=== PATIENT | male | born 1955 | race Caucasian/White ===

== ENCOUNTER → 2016-05-24 | Outpatient (CLI) | payer OTHER ==
[~2016-05-24] MED LIST: ACET-703 PO; AMLO10TA2 PO; BACT800T5 PO; HYDR-3516 PO; HYDR-3533 PO; IBUP800T23 PO; KETO60IN6 IM; MELO7.5T4 PO; METH125I2 IM; MULT1TAB85 PO
[2016-05-24 14:57] LABS: AUTOMATED NEUTROPHIL # 2.8 TH/MM3 (1.8-7.7); BASOPHIL % 0.8 % (0.0-2.0); EOSINOPHIL # 0.1 TH/MM3 (0-0.4); LYMPH % 26.9 % (9.0-44.0); LYMPHOCYTE # 1.4 TH/MM3 (1.0-4.8); MEAN CELL VOLUME 74.3 FL (80.0-100.0); MEAN CORPUSCULAR HEMOGLOBIN 23.8 PG (27.0-34.0); MEAN CORPUSCULAR HGB CONC 32.1 % (32.0-36.0); MONO % 15.3 % (0.0-8.0); PLATELET COUNT 160 TH/MM3 (150-450); RED BLOOD COUNT 4.58 MIL/MM3 (4.50-5.90); RED CELL DISTRIBUTION WIDTH 18.6 % (11.6-17.2); WHITE BLOOD COUNT 5.2 TH/MM3 (4.0-11.0)
[2016-05-24 14:58] LABS: HEMO FLAGS AUTO DIFF
[2016-05-24 15:09] LABS: APTT (PATIENT) 26.5 SEC (24.3-30.1); PROTHROMBIN TIME - PATIENT 11.4 SEC (9.8-11.6)
[2016-05-24 15:20] LABS: BICARBONATE 31.5 MEQ/L (21.0-32.0); POTASSIUM 3.6 MEQ/L (3.5-5.1)
[2016-05-24 15:29] LABS: KERATOCYTES OCC (NORMAL); PLATELET ESTIMATE SMEAR NORMAL (NORMAL); PLATELET MORPHOLOGY NORMAL (NORMAL); SCAN/DIFF AUTO DIFF CONFIRMED
== END ==
LOC: CLAB 14:39
PROVIDERS: ATTEND Family Medicine
DX: D50.9 Iron deficiency anemia, unspecified (principal); M79.89 Other specified soft tissue disorders
CPT/HCPCS: 36415; 80048; 85025; 85610; 85730

== ENCOUNTER → 2016-05-30 | Outpatient (CLI) | payer OTHER ==
[~2016-05-30] MED LIST changes: +GADODIAMIDE PF 287 MG/ML 20 ML VIAL (for RAD MRI) IV ONE
--- NOTE | 2016-05-30 17:07 | RADRPT ---
EXAM DATE/TIME: 05/30/2016 16:49 [facility] COMPARISON: No previous studies available for comparison. INDICATIONS : Screening for MRI. MEDICAL HISTORY : None. SURGICAL HISTORY : None. ENCOUNTER: Initial ACUITY: 1 day PAIN SCORE: 0/10 LOCATION: orbits. FINDINGS: Multiple views of both orbits were performed. There is no evidence of fracture involving the bony st ructures surrounding the orbits. The maxillary sinuses appear to be well aerated. No radiopaque bod ies are seen in the soft tissues. No MRI incompatible foreign body is identified. CONCLUSION: No MRI incompatible foreign body is identified. Juve Hubbard MD on May 30, 2016 at 17:05 Board Certified Radiologist. This report was verified electronically.
--- NOTE | 2016-05-30 22:56 | RADRPT ---
EXAM DATE/TIME: 05/30/2016 17:17 [facility] COMPARISON: CT THORAX W CONTRAST, April 28, 2016, 14:13. INDICATIONS : Neck CA. 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 CONTRAST: 20 cc Omniscan (gadodiamide) IV MEDICAL HISTORY : Hypertension. Renal calculi. SURGICAL HISTORY : Hip fracture. ENCOUNTER: Subsequent ACUITY: > 1 year PAIN SCORE: 4/10 LOCATION: Left side. TECHNIQUE: Multisequence, multiplanar MRI examination was performed. FINDINGS: MRI of the lower neck and upper chest was performed to further evaluate the apparent basal cell carci noma left side of the neck. There is a large soft tissue defect evident at the angle of the neck with abnormal soft tissue with a large ulceration. This is associated with abnormal contrast enhancement. There is adenopathy in the left neck associated with the jugular vein. There is abnormal soft tissue extending towards but not involving the brachial plexus. There is no evidence for perineural spread. This does not involve the lung apex. This does involve the clavicle and is in intimate association with the clavicle. The marrow in the c lavicle appears uninvolved but abnormal soft tissue does extend to the cortex. CONCLUSION: 1. Large soft tissue defect as described above, basal cell carcinoma by history with extension as kenneth cribed above. 2. There is probable pathological adenopathy in the neck. 3. Adenopathy in the neck could be biopsied by ultrasound. Abelino Oviedo MD FACR on May 30, 2016 at 22:45 Board Certified Radiologist. This report was verified electronically.
== END ==
LOC: HRAD 15:55
PROVIDERS: ATTEND Family Medicine
DX: C44.41 Basal cell carcinoma of skin of scalp and neck (principal); M79.89 Other specified soft tissue disorders
CPT/HCPCS: 70543; A9579

== ENCOUNTER → 2016-06-06 | Outpatient (CLI) | payer OTHER ==
[~2016-06-06] MED LIST changes: -GADODIAMIDE PF 287 MG/ML 20 ML VIAL (for RAD MRI) IV ONE
--- NOTE | 2016-06-06 12:07 | RADRPT ---
EXAM DATE/TIME: 06/06/2016 10:02 [facility] COMPARISON: CT THORAX W CONTRAST, April 28, 2016, 14:13. MRI SOFT TISSUE NECK W & W/O CONTRAST, May 30 017, 17:17. INDICATIONS : Left axillary mass. MEDICAL HISTORY : Hypertension. Anemia. Basal cell carcinoma, left neck. SURGICAL HISTORY : Left hip surgery. Kidney stone extraction. Basal cell carcinoma surgery. ENCOUNTER: Initial ACUITY: 1 day PAIN SCORE: 0/10 LOCATION: Left axilla. AREA EVALUATED: Left axilla. FINDINGS: Cordoba scale and Doppler imaging was performed in the left axilla. No mass is visualized. There is no a bnormal fluid collection. 2 lymph nodes are identified. One demonstrates normal morphology and size m easuring 1.2 x 0.5 x 0.8 cm. Another is normal in size but demonstrates a mildly thickened cortex eliana suring 0.8 x 1.1 x 1.2 cm. CONCLUSION: 1. No mass or fluid collection is identified in the left axilla. 2. A total of 2 lymph nodes are identified. None are enlarged by size criteria but one has a mildly t hickened cortex raising suspicion that it may be abnormal. Juve Samaniego MD on June 06, 2016 at 12:03 Board Certified Radiologist. This report was verified electronically.
--- NOTE | 2016-06-06 14:13 | RADRPT ---
EXAM DATE/TIME: 06/06/2016 10:29 [facility] COMPARISON: MRI SOFT TISSUE NECK W & W/O CONTRAST, May 30, 2016, 17:17. INDICATIONS : Left neck mass, abnormal MRI. MEDICAL HISTORY : Anemia. Basal cell carcinoma, left neck. SURGICAL HISTORY : Left hip surgery. Kidney stone extraction. Basal cell carcinoma surgery. ENCOUNTER: Initial ACUITY: 1 day PAIN SCORE: 0/10 LOCATION: Left neck AREA EVALUATED: Left neck mass. FINDINGS: There are multiple hypoechoic areas most likely lymph nodes in the left neck largest proximally measu ring 1.7 and others at or around 8-11 mm in size. These are nonspecific. There is a history of basal cell cancer left side of the neck. Further evaluation with PET CT scan may be worth consideration. CONCLUSION: Multiple hypoechoic areas probable lymph nodes in the left neck majority approximately 1 cm size larg est 1.7 cm in size. History of basal cell cancer left side of the neck and PET CT scan may be warrant beverly Lebron MD on June 06, 2016 at 14:09 Board Certified Radiologist. This report was verified electronically.
== END ==
LOC: HRAD 09:20
PROVIDERS: ATTEND Family Medicine
DX: R22.1 Localized swelling, mass and lump, neck (principal); R22.32 Localized swelling, mass and lump, left upper limb; Z85.828 Personal history of other malignant neoplasm of skin
CPT/HCPCS: 76536; 76999

== ENCOUNTER 2016-07-05 13:12 | Day surgery (SDC) | payer OTHER ==
[~2016-07-05 13:12] MED LIST changes: -BACT800T5 PO; -HYDR-3516 PO; -HYDR-3533 PO; -IBUP800T23 PO; -KETO60IN6 IM; -MELO7.5T4 PO; -METH125I2 IM
[2016-07-05 13:37] VITALS: BP 133/73; PULSE 106; RESP 18; TEMP 98; O2SAT 99
[2016-07-05 14:25] VITALS: BP 144/85; PULSE 101; RESP 18; TEMP 97.6; O2SAT 100
[2016-07-05] MEDS ORDERED: LIDOCAINE HCL 1% PF 30 ML VIAL ONE (14:27)
[2016-07-05] MEDS ORDERED: SODIUM BICARBONATE 8.4% INJ 50 ML ONE (14:27)
[2016-07-05 14:39] VITALS: BP 146/79; PULSE 99; RESP 18; O2SAT 98
--- NOTE | 2016-07-05 15:46 | RADRPT ---
EXAM DATE/TIME: 07/05/2016 13:36 [facility] COMPARISON: No previous studies available for comparison. EXTERNAL COMPARISON: [facility], PET/CT - HEAD & NECK CA, Jun 06 2016. INDICATIONS : Abnormal left axillary lymph node. MEDICAL HISTORY : Anemia. Basal cell carcinoma, left neck. SURGICAL HISTORY : Left hip surgery. Kidney stone extraction. Basal cell carcinoma surgery. ENCOUNTER: Initial ACUITY: 1 day PAIN SCORE: 0/10 LOCATION: Left axilla. ORGAN: Left lymph node axillary SPECIMENS: Two core specimen(s) submitted for pathologic evaluation. DEVICE: 18 gauge Bio Pince needle Post procedure scanning reveals no hematoma or other complication. The possibility does exist that the tissue obtained will be non-diagnostic. If the sample is non-elizabeth gnostic a repeat biopsy or surgical biopsy may need to be performed. TECHNIQUE: 1. Ultrasound guidance for needle biopsy. 2. Needle biopsy. The risks, benefits, and alternatives to ultrasound guided needle biopsy were explained to the patien t in detail including the risk of bleeding and infection. Written and verbal informed consent was ob tained. With the patient on the ultrasound table, images were obtained. Overlying skin was prepped and drape d in the usual sterile fashion and Lidocaine was utilized as a local anesthetic. A needle was advanced into the identified target and the number of specimens as above obtained and meza bmitted for pathologic evaluation. The patient tolerated the procedure well and left the ultrasound suite in stable condition. 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 Abelino Oviedo MD FACR on July 05, 2016 at 15:40 Board Certified Radiologist. This report was verified electronically.
[2016-07-11] MEDS ORDERED: HYDR-3516 PO (11:54)
[2016-07-13] MEDS ORDERED: BACT800T5 PO (15:25)
[2016-07-18] MEDS ORDERED: HYDR-3516 PO (09:35)
[2016-07-18] MEDS ORDERED: METH125I2 IM (09:48)
[2016-07-18] MEDS ORDERED: KETO60IN6 IM (09:48)
[2016-07-18] MEDS ORDERED: AMLO10TA2 PO (09:55)
== END 2016-07-05 14:48 | disposition home or self-care (01) ==
LOC: HRAD 13:12 → HRIP 13:13 → EDSTATUS 13:30 → HRAD 14:48
PROVIDERS: ATTEND Family Medicine
DX: R59.9 Enlarged lymph nodes, unspecified (principal); Z85.828 Personal history of other malignant neoplasm of skin; D64.9 Anemia, unspecified
CPT/HCPCS: 38505; 76942; 88305; 88333; 88341; 88342

== ENCOUNTER → 2016-09-01 | Outpatient (CLI) | payer OTHER ==
[~2016-09-01] MED LIST changes: -ACET-703 PO; +HYDR-3516 PO
--- NOTE | 2016-09-01 16:29 | RADRPT ---
EXAM DATE/TIME: 09/01/2016 00:00 [facility] COMPARISON: No previous studies available for comparison. OUTSIDE STUDY REVIEWED: INDICATIONS : CT guided liver lesion/hepatic dome lesion biopsy CONCLUSION: The small lesion seen in the dome of the liver by MRI is poorly visualized on the noncontrast CT and given its location would be impossible to biopsy percutaneously. This may be accessible for laparoscopic ultrasound-guided wedge resection. Thank you for this consultation. Abelino Oviedo MD FACR on September 01, 2016 at 16:26 Board Certified Radiologist. This report was verified electronically.
== END ==
LOC: HRAD 14:20
PROVIDERS: ATTEND Internal Medicine
DX: C44.91 Basal cell carcinoma of skin, unspecified (principal); K76.9 Liver disease, unspecified
CPT/HCPCS: 76140

== ENCOUNTER 2016-09-04 08:49 | Emergency (ER) | payer OTHER ==
[~2016-09-04] VITALS: Ht 182.9 cm; Wt 102.0 kg
[2016-09-04 08:51] VITALS: BP 132/76; PULSE 99; RESP 16; TEMP 98.2; O2SAT 98
--- NOTE | 2016-09-04 09:29 | PD ---
HPI . Chronic Left hip pain Chief Complaint: Pain: Acute or Chronic Time Seen by Provider: 09:29 Travel History International Travel<30 days: No Contact w/Intl Traveler<30days: No Traveled to known affect area: No History of Present Illness HPI 60-year-old male with multiple BCC and chronic left hip pain status post left subcapital femoral neck fracture back in February 2016 status post open rigid internal fixation here with complaints of chronic left hip pain. Patient tells me that he is here seeking consultation from an orthopedic physician. He was given tramadol by his oncologist, but tells me it is not helping his pain. He is not here seeking pain medications and only wants to be seen by an orthopedist. He recently obtained Medicaid and is not aware of how it works. He used to receive patient assistance and this is a new process to him. He is accompanied by his brother. PFSH Past Medical History Arthritis: No Asthma: No Autoimmune Disease: No Anxiety: No Depression: No Heart Rhythm Problems: No Cancer: Yes (basal cell carcinoma) Cardiovascular Problems: Yes (HBP) High Cholesterol: No Chemotherapy: No Chest Pain: No Congestive Heart Failure: No COPD: No Cerebrovascular Accident: No Diabetes: No Diminished Hearing: No Endocrine: No GERD: No Genitourinary: No Hepatitis: No Hiatal Hernia: No Hypertension: Yes Immune Disorder: No Kidney Stones: Yes Musculoskeletal: No Neurologic: No Psychiatric: No Reproductive: No Respiratory: No Migraines: No Radiation Therapy: No Renal Failure: No Seizures: No Sleep Apnea: No Thyroid Disease: No Ulcer: No Past Surgical History Abdominal Surgery: No AICD: No Arteriovenous Shunt: No Body Medical Devices: 3 SCREWS LEFT HIP Cardiac Surgery: No Ear Surgery: No Endocrine Surgery: No Eye Surgery: No Genitourinary Surgery: Yes (NEPHROSTOMY TUBE KIDNEY STONE LEFT ) Gynecologic Surgery: No Insulin Pump: No Joint Replacement: No Pacemaker: No Thoracic Surgery: No Other Surgery: Yes (LITHOTRIPSY) Social History Alcohol Use: No (QUIT 05/13/10) Tobacco Use: No Substance Use: No Allergies-Medications (Allergen,Severity, Reaction): Coded Allergies: *MDRO Multi-Drug Resistant Organism (Verified Adverse Reaction, Unknown, MRSA, 08/29/16) MRSA (blood & urine) - 06/30/10 Reported Meds & Prescriptions Reported Meds & Active Scripts Active Amlodipine (Amlodipine Besylate) 10 Mg Tab 10 Mg PO DAILY Hydrocodone-Acetaminophen 5-325 mg Tab 1 Tab PO Q6H PRN Reported Multivitamin Men (Multiple Vitamins W/ Minerals) 1 Tab Tab 1 Tab PO DAILY Review of Systems General / Constitutional: No: Fever Eyes: No: Visual changes HENT: No: Headaches Cardiovascular: No: Chest Pain or Discomfort Respiratory: No: Shortness of Breath Gastrointestinal: No: Abdominal Pain Genitourinary: No: Dysuria Musculoskeletal: Positive: Pain (left hip pain), No: Atrophy Skin: No Rash Neurologic: No: Weakness Psychiatric: No: Depression Endocrine: No: Polydipsia Hematologic/Lymphatic: No: Easy Bruising Physical Exam Narrative GENERAL: AAO x 3, no acute distress, Well-nourished, well-developed patient. SKIN: Warm and dry. No visible rashes or bruising. HEAD: Normocephalic and atraumatic. EYES: No scleral icterus. No injection or drainage. ENT: No nasal drainage noted. Mucous membranes pink. Airway patent. NECK: Supple, trachea midline. No JVD. CARDIOVASCULAR: Regular rate and rhythm without murmurs, gallops, or rubs. RESPIRATORY: Breath sounds equal bilaterally. No accessory muscle use. No rhonchi or rales. GASTROINTESTINAL: Abdomen soft, non-tender, nondistended. EXTREMITIES: No cyanosis or edema. left hip: tenderness to palpation laterally, limited ROM, SLR elicits back pain BACK: Nontender without obvious deformity. No CVA tenderness. PSYCH: AAO x 3, normal affect. Data Data Last Documented VS Vital Signs Date Time Temp Pulse Resp B/P Pulse Ox O2 Delivery O2 Flow Rate FiO2 09/04/16 08:51 98.2 99 16 132/76 98 MDM Medical Decision Making Medical Screen Exam Complete: Yes Emergency Medical Condition: Yes Medical Record Reviewed: Yes Differential Diagnosis Acute on chronic hip pain, postoperative pain, less likely recurrent hip fracture Narrative Course 60-year-old male with multiple BCC and chronic left hip pain status post left subcapital femoral neck fracture back in February 2016 status post open rigid internal fixation here with complaints of chronic left hip pain. Patient tells me that he is here seeking consultation from an orthopedic physician. He was given tramadol by his oncologist, but tells me it is not helping his pain. He is not here seeking pain medications and only wants to be seen by an orthopedist. He recently obtained Medicaid and is not aware of how it works. He used to receive patient assistance and this is a new process to him. He is accompanied by his brother. Patient was given information for [facility]. A medical screening exam was performed: At the time of evaluation the presenting medical condition was determined not to be of an emergent nature. The patient was given the option of receiving additional care, but declined. Patient was given options for additional community resources from which to obtain care. The Patient Has Been advised to seek medical attention for their presenting complaint. The patient has been advised to return to the ER at any time if an emergent condition develops. 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 I have already explained that I cannot have orthopedics see him in the ED for a chronic issue that is non-emergent. I had another discussion with patient. He does not want meds. He is requesting I bring Dr. Fitzgerald to see him in the ED. I have explained to him that I cannot do this. He still does not seem to understand. I had another discussion with him and his brother. The brother explained it to him Diagnosis Primary Impression: Chronic left hip pain Referrals: Orthopedist Patient Instructions: General Instructions Additional Instructions: You'll need to establish with a primary care provider. See orthopedics as recommended. Continue your current medications. Med/Other Pt SpecificInfo: No Change to Meds Disposition: 01 DISCHARGE HOME Condition: Stable Winifred Mirza Sep 04, 2016 09:29
== END 2016-09-04 13:43 | disposition home or self-care (01) ==
LOC: NEPK 08:49
DX: M25.552 Pain in left hip (principal); G89.29 Other chronic pain; I10 Essential (primary) hypertension; Z85.828 Personal history of other malignant neoplasm of skin; Z86.79 Personal history of other diseases of the circulatory system; Z87.442 Personal history of urinary calculi
CPT/HCPCS: 99281

== ENCOUNTER 2017-07-03 08:31 | Inpatient (IN) | payer MEDICAID, OTHER ==
[~2017-07-03] VITALS: Ht 182.9 cm; Wt 106.0 kg
[2017-07-03] VITALS (11 sets, daily range): BP systolic 139–199; BP diastolic 80–117; PULSE 96–138; RESP 14–28; TEMP 97.9–98.8; O2SAT 95–100
[~2017-07-03 08:31] MED LIST changes: +DAKI0.12 TOPICAL; +ENOX150I SQ; +OMEG100046 PO; +SULF1TAB23 PO; +TRAM50TA PO; +WARF-22 PO
[2017-07-03] MEDS ORDERED: SODIUM CHLOR 0.9% 1000 ML INJ 1,000 ML IV ONE (09:30)
[2017-07-03 10:08] LABS: AUTOMATED NEUTROPHIL # 13.4 TH/MM3 (1.8-7.7); BASOPHIL % 0.1 % (0.0-2.0); HEMATOCRIT 49.2 % (39.0-51.0); HEMOGLOBIN 16.4 GM/DL (13.0-17.0); LYMPH % 1.7 % (9.0-44.0); LYMPHOCYTE # 0.3 TH/MM3 (1.0-4.8); MEAN CELL VOLUME 87.6 FL (80.0-100.0); MEAN CORPUSCULAR HEMOGLOBIN 29.3 PG (27.0-34.0); MEAN CORPUSCULAR HGB CONC 33.4 % (32.0-36.0); MEAN PLATELET VOLUME 7.7 FL (7.0-11.0); MONO % 12.7 % (0.0-8.0); NEUT % 85.5 % (16.0-70.0); PLATELET COUNT 129 TH/MM3 (150-450); RED BLOOD COUNT 5.61 MIL/MM3 (4.50-5.90); RED CELL DISTRIBUTION WIDTH 15.6 % (11.6-17.2); WHITE BLOOD COUNT 15.7 TH/MM3 (4.0-11.0)
[2017-07-03 10:15] LABS: ALBUMIN 4.6 GM/DL (3.4-5.0); ALT (GPT) 64 U/L (12-78); AST (GOT) 197 U/L (15-37); BICARBONATE 23.2 MEQ/L (21.0-32.0); BLOOD UREA NITROGEN 6 MG/DL (7-18); CALCIUM 9.9 MG/DL (8.5-10.1); CHLORIDE 98 MEQ/L (98-107); CREATININE 2.59 MG/DL (0.60-1.30); GLOMERULAR FILTRATION RATE 25 ML/MIN (>89); GLUCOSE,RANDOM 144 MG/DL (74-106); SODIUM (NA) 146 MEQ/L (136-145)
[2017-07-03 10:17] LABS: ALKALINE PHOSPHATASE 146 U/L (45-117); TOTAL BILIRUBIN ADULT 6.9 MG/DL (0.2-1.0); TOTAL PROTEIN 9.8 GM/DL (6.4-8.2)
--- NOTE | 2017-07-03 10:34 | PD ---
HPI Chief Complaint: GI Complaint Time Seen by Provider: 09:05 Travel History International Travel<30 days: No Contact w/Intl Traveler<30days: No Traveled to known affect area: No History of Present Illness HPI Patient is a 61 year old male who comes in complaining of difficulty swallowing that started yesterday after vomiting. He says that whenever he tries to swallow , he chokes and it comes back up his nose. He denies any pain. He denies sore throat, fevers, congestion. He denies abdominal pain or chest pain. He says he does not feel like anything got stuck in his throat. He says he has never had this before. He says he occasionally has some SOB, but currently is breathing okay. He has not taken anything for his symptoms. Severity is moderate. PFSH Past Medical History Arthritis: No Asthma: No Autoimmune Disease: No Anxiety: No Depression: No Heart Rhythm Problems: No Cancer: Yes (basal cell carcinoma) Cardiovascular Problems: Yes (HBP) High Cholesterol: No Chemotherapy: No Chest Pain: No Congestive Heart Failure: No COPD: No Cerebrovascular Accident: No Diabetes: No Diminished Hearing: No Endocrine: No GERD: No Genitourinary: No Hepatitis: No Hiatal Hernia: No Hypertension: Yes Immune Disorder: No Kidney Stones: Yes Musculoskeletal: No Neurologic: No Psychiatric: No Reproductive: No Respiratory: No Migraines: No Radiation Therapy: No Renal Failure: No Seizures: No Sleep Apnea: No Thyroid Disease: No Ulcer: No Past Surgical History Abdominal Surgery: No AICD: No Arteriovenous Shunt: No Body Medical Devices: 3 SCREWS LEFT HIP Cardiac Surgery: No Ear Surgery: No Endocrine Surgery: No Eye Surgery: No Genitourinary Surgery: Yes (NEPHROSTOMY TUBE KIDNEY STONE LEFT ) Gynecologic Surgery: No Insulin Pump: No Joint Replacement: No Pacemaker: No Thoracic Surgery: No Other Surgery: Yes (LITHOTRIPSY) Social History Alcohol Use: No (QUIT 05/13/10) Tobacco Use: No Substance Use: No Allergies-Medications (Allergen,Severity, Reaction): Coded Allergies: *MDRO Multi-Drug Resistant Organism (Verified Adverse Reaction, Unknown, MRSA, 07/03/17) MRSA (blood & urine) - 06/30/10 Reported Meds & Prescriptions Reported Meds & Active Scripts Active Amlodipine (Amlodipine Besylate) 10 Mg Tab 10 Mg PO DAILY Hydrocodone-Acetaminophen 5-325 mg Tab 1 Tab PO Q6H PRN Reported Warfarin 10 Mg Tab 10 Mg PO DAILY Enoxaparin Inj (Enoxaparin Sodium) 150 Mg/Ml Syr 150 Mg SQ DAILY Tramadol (Tramadol HCl) 50 Mg Tab 50 Mg PO BID PRN Fish Oil 1,000 mg Softgel ([place]-3/Dha/Epa/Fish Oil) 1,000 Mg Capsule 1 Cap PO DAILY Review of Systems Except as stated in HPI: all other systems reviewed are Neg General / Constitutional: No: Fever, Chills HENT: No: Headaches, Lightheadedness, Sore Throat Cardiovascular: No: Chest Pain or Discomfort Gastrointestinal: Positive: Vomiting, No: Abdominal Pain Musculoskeletal: No: Myalgias Skin: No Rash, No Change in Pigmentation Neurologic: No: Weakness Physical Exam Narrative GENERAL: Awake and alert, in no acute distress. SKIN: Focused skin assessment warm/dry. HEAD: Atraumatic. Normocephalic. EYES: Pupils equal and round. No scleral icterus. No injection or drainage. ENT: Mucous membranes pink and moist. No tonsillar swelling. Uvula is midline , is bifurcated, but not enlarged. No tongue swelling. NECK: Trachea midline. No JVD. CARDIOVASCULAR: Regular rate and rhythm. No murmur appreciated. RESPIRATORY: No accessory muscle use. Clear to auscultation. Breath sounds equal bilaterally. No stridor. GASTROINTESTINAL: Abdomen soft, non-tender, nondistended. MUSCULOSKELETAL: No obvious deformities. No clubbing. No cyanosis. No edema. NEUROLOGICAL: Awake and alert. No obvious cranial nerve deficits. Motor grossly within normal limits. Hoarse voice. PSYCHIATRIC: Appropriate mood and affect; insight and judgment normal. Data Data Last Documented VS Vital Signs Date Time Temp Pulse Resp B/P (MAP) Pulse Ox O2 Delivery O2 Flow Rate FiO2 07/03/17 08:32 97.9 138 20 199/98 (131) 98 Room Air Orders Orders Iv Access Insert/Monitor (07/03/17 09:22) Complete Blood Count With Diff (07/03/17 09:22) Comprehensive Metabolic Panel (07/03/17 09:22) Lipase (07/03/17 09:22) Sodium Chlor 0.9% 1000 Ml Inj (Ns 1000 M (07/03/17 09:30) Ct Soft Tiss Neck W/O Iv Cont (07/03/17 ) Ct Thorax/ Chest Wo Iv Contras (07/03/17 ) Dexamethasone Inj (Decadron Inj) (07/03/17 11:30) Pantoprazole Inj (Protonix Inj) (07/03/17 11:30) Labs Laboratory Tests Test 07/03/17 09:40 White Blood Count 15.7 TH/MM3 Red Blood Count 5.61 MIL/MM3 Hemoglobin 16.4 GM/DL Hematocrit 49.2 % Mean Corpuscular Volume 87.6 FL Mean Corpuscular Hemoglobin 29.3 PG Mean Corpuscular Hemoglobin Concent 33.4 % Red Cell Distribution Width 15.6 % Platelet Count 129 TH/MM3 Mean Platelet Volume 7.7 FL Neutrophils (%) (Auto) 85.5 % Lymphocytes (%) (Auto) 1.7 % Monocytes (%) (Auto) 12.7 % Eosinophils (%) (Auto) 0.0 % Basophils (%) (Auto) 0.1 % Neutrophils # (Auto) 13.4 TH/MM3 Lymphocytes # (Auto) 0.3 TH/MM3 Monocytes # (Auto) 2.0 TH/MM3 Eosinophils # (Auto) 0.0 TH/MM3 Basophils # (Auto) 0.0 TH/MM3 CBC Comment DIFF FINAL Differential Comment Blood Urea Nitrogen 6 MG/DL Creatinine 2.59 MG/DL Random Glucose 144 MG/DL Total Protein 9.8 GM/DL Albumin 4.6 GM/DL Calcium Level 9.9 MG/DL Alkaline Phosphatase 146 U/L Aspartate Amino Transf (AST/SGOT) 197 U/L Alanine Aminotransferase (ALT/SGPT) 64 U/L Total Bilirubin 6.9 MG/DL Sodium Level 146 MEQ/L Potassium Level 3.0 MEQ/L Chloride Level 98 MEQ/L Carbon Dioxide Level 23.2 MEQ/L Anion Gap 25 MEQ/L Estimat Glomerular Filtration Rate 25 ML/MIN Lipase 129 U/L MDM Medical Decision Making Medical Screen Exam Complete: Yes Emergency Medical Condition: Yes Medical Record Reviewed: Yes Differential Diagnosis esophageal foreign body vs esophageal tear vs mass vs esophageal ring Narrative Course Patient is a 61-year-old male who comes in complaining of inability to swallow and hoarse voice. Exam shows no evidence of stridor. I have established, labs sent. Labs do show an elevated white blood cell count of 15, creatinine is elevated at 2.59. Previous creatinine was drawn in May 2016 and this was under 1. CT of his neck and chest performed. This shows severe esophagitis as well as swelling of his airway. Patient was given Decadron and Protonix. Last [address] 07/03/17 0000 Signed Impressions: Service Date/Time: Monday, July 03, 2017 10:37 - CONCLUSION: Abnormal significant prevertebral soft tissue thickening measuring up to 2.9 cm, greatest in thickness in the subglottic region, but extending up to the hypopharynx. The soft tissue thickening causes narrowing of the hypopharyngeal airway. The This is a new finding when compared to prior MRI in May 2016. Meir Singh MD Chest CT 07/03/17 Signed Impressions: Service Date/Time: Monday, July 03, 2017 10:37 - CONCLUSION: 1. Concentric thickening of the esophageal wall from superior mediastinum to GE junction suggests esophagitis. 2. No evidence of pneumomediastinum. 3. 5 mm nodular density in the lateral right midlung could represent focal thickening of the pleura or a solitary nodule. Recommend followup CT in 6 months. Meir Singh MD He has not had any symptoms of an infectious process. Concern is for an impending airway issue, so he will be admitted to the ICU for further management. Diagnosis Primary Impression: Esophagitis Additional Impression: Airway compromise Admitting Information Admitting Physician Requests: Admit Eli Lopez MD Jul 03, 2017 10:34
--- NOTE | 2017-07-03 11:11 | RADRPT ---
EXAM DATE/TIME: 07/03/2017 10:37 [facility] COMPARISON: No previous studies available for comparison. INDICATIONS : Difficulty swallowing after vomiting. RADIATION DOSE: 19.95 CTDIvol (mGy) MEDICAL HISTORY : Cardiovascular disease. Hypertension. Carcinoma, basal cell. SURGICAL HISTORY : None. ENCOUNTER: Initial ACUITY: 1 day PAIN SCALE: 6/10 LOCATION: chest TECHNIQUE: Volumetric scanning of the chest was performed. Using automated exposure control and adjustment of t he mA and/or kV according to patient size, radiation dose was kept as low as reasonably achievable to obtain optimal diagnostic quality images. DICOM format image data is available electronically for r eview and comparison. Follow-up recommendations for detected pulmonary nodules are based at a minimum on nodule size and pa tient risk factors according to Fleischner Society Guidelines. FINDINGS: LUNGS: There is no consolidation or pneumothorax. There is a solitary 5 mm nodule adjacent to the lateral m ajor fissure near the periphery, best seen on image #35.. PLEURAE: There is no pleural thickening or pleural effusion. MEDIASTINUM: The heart and great vessels demonstrate no acute abnormality. There is no mediastinal or hilar lymph adenopathy. AXILLAE: Within normal limits. No lymphadenopathy. MUSCULOSKELETAL: Within normal limits for patient age. MISCELLANEOUS: There is an abnormal appearance of the esophagus with concentric wall thickening from the superior me diastinum down to the GE junction. Wall thickness measures up to 13 mm. No mediastinal gas seen. CONCLUSION: 1. Concentric thickening of the esophageal wall from superior mediastinum to GE junction suggests eso phagitis. 2. No evidence of pneumomediastinum. 3. 5 mm nodular density in the lateral right midlung could represent focal thickening of the pleura o r a solitary nodule. Recommend followup CT in 6 months. Meir Singh MD on July 03, 2017 at 10:57 Board Certified Radiologist. This report was verified electronically.
--- NOTE | 2017-07-03 11:18 | RADRPT ---
EXAM DATE/TIME: 07/03/2017 10:37 [facility] COMPARISON: MRI SOFT TISSUE NECK W & W/O CONTRAST, May 30, 2016, 17:17. INDICATIONS : Difficulty swallowing after vomiting. RADIATION DOSE: 15.63 CTDIvol (mGy) MEDICAL HISTORY : Cardiovascular disease. Carcinoma, basal cell. Hypertension. SURGICAL HISTORY : None. ENCOUNTER: Initial ACUITY: 1 day PAIN SCORE: 6/10 LOCATION: neck TECHNIQUE: Volumetric scanning of the neck was performed. Using automated exposure control and adjustment of th e mA and/or kV according to patient size, radiation dose was kept as low as reasonably achievable to obtain optimal diagnostic quality images. DICOM format image data is available electronically for re view and comparison. FINDINGS: Examinations performed without intravenous contrast due to elevated creatinine. There is moderate mu cosal thickening of the left maxillary sinus without air-fluid level. The remainder of the paranasal sinuses are clear. There is significant soft tissue thickening in the prevertebral soft tissues of the infraglottic neck measuring up to 2.9 cm in thickness. This causes extrinsic impression and narrowing of the infraglo ttic airway. There is also thickening extending to the lateral pharyngeal wall bilaterally to the le becky of the base of the epiglottis. Soft tissue thickening is homogeneous we mildly low in attenuatio n on this noncontrast study with mean CT density of 39 Hounsfield units. This soft tissue thickening is a new finding when compared to MRI performed 05/30/16. In the angle of the left neck, there is cutaneous thickening and irregularity, similar in appearance to prior MRI. No evidence of lateral compartment adenopathy. CONCLUSION: Abnormal significant prevertebral soft tissue thickening measuring up to 2.9 cm, greatest in thicknes s in the subglottic region, but extending up to the hypopharynx. The soft tissue thickening causes n arrowing of the hypopharyngeal airway. The This is a new finding when compared to prior MRI in 2016. Meir Singh MD on July 03, 2017 at 11:09 Board Certified Radiologist. This report was verified electronically.
[2017-07-03] MEDS ORDERED: DEXAMETHASONE SOD PHOS 20 MG/5 ML VIAL IV PUSH ONE (11:30)
[2017-07-03] MEDS ORDERED: PANTOPRAZOLE SODIUM 40 MG VIAL IV PUSH ONE (11:30)
[2017-07-03] MEDS ORDERED: RESP: RACEPINEPHRINE 2.25% 0.5 ML NEB NEB ONE (12:45)
[2017-07-03] MEDS ORDERED: RESP: RACEPINEPHRINE 2.25% 0.5 ML NEB NEB PRN (13:45)
[2017-07-03] MEDS ORDERED: BISACODYL 10 MG SUPP RECTAL PRN (13:45)
[2017-07-03] MEDS ORDERED: CHLORHEXIDINE GLUCONATE 2 % 1 PACK (2 CLOTHS) TOP PRN (13:45)
[2017-07-03] MEDS ORDERED: MAGNESIUM HYDROXIDE SUSP 30 ML CUP PO PRN (13:45)
[2017-07-03] MEDS ORDERED: MISCELLANEOUS NURSING INFORMATION XX SCH (13:45)
[2017-07-03] MEDS ORDERED: VANCOMYCIN INJ 1,000 MG in SODIUM CHLOR 0.9% 250 ML INJ 250 ML IV SCH (13:45)
[2017-07-03] MEDS ORDERED: ONDANSETRON HCL 4 MG/2 ML VIAL IV PUSH PRN (13:45)
[2017-07-03] MEDS ORDERED: SENNOSIDES 8.6 MG TAB PO PRN (13:45)
[2017-07-03] MEDS ORDERED: LACTULOSE SYRUP 20 GM/30 ML CUP PO PRN (13:45)
[2017-07-03] MEDS ORDERED: SODIUM CHLORIDE 0.9% FLUSH 10 ML FLUSH IV FLUSH PRN (13:45)
[2017-07-03] MEDS ORDERED: diphenhydrAMINE HCL 50 MG/ML VIAL IM PRN (14:00)
[2017-07-03] MEDS ORDERED: diphenhydrAMINE HCL 50 MG/ML VIAL IM ONE (14:00)
[2017-07-03] MEDS ORDERED: HEPARIN SODIUM - SQ 10,000 UNITS/ML VIAL SQ SCH (14:00)
[2017-07-03] MEDS: FAMOTIDINE 20 MG/2 ML VIAL IV PUSH SCH (14:00)
[2017-07-03] MEDS: SODIUM CHLOR 0.9% 1000 ML INJ 1,000 ML IV SCH (14:00)
[2017-07-03] MEDS: cefTRIAXone INJ 2,000 MG in SODIUM CHLORIDE 0.9% INJ 100 ML IV SCH (14:00)
[2017-07-03] MEDS: METOPROLOL TARTRATE 5 MG/5 ML VIAL IV PUSH PRN ×2 (14:29→15:28)
[2017-07-03] MEDS ORDERED: VANCOMYCIN INJ 1,000 MG in SODIUM CHLOR 0.9% 250 ML INJ 250 ML IV ONE (14:30)
--- NOTE | 2017-07-03 15:36 | PD.CONS ---
cc: Zane Ramos MD HPI Service General Surgery Consult Requested By Dr. Lal Reason for Consult Possible need for surgical airway placement Primary Care Physician Gracy Hidalgo History of Present Illness 61 year old male with a past medical history of basal cell carcinoma, hypertension and kidney stones who presents after suffering from difficulty swallowing after violently vomiting yesterday from an unknown reason. He has never had anything like this happen before. He has not started any new medications recently. He has not eaten anything unusual lately. He has been started on scheduled Decadron and racemic epinephrine. His oxygen saturation is 98% on 6L humidified air. A General Surgery consultation has been requested in case a surgical airway is needed. Review of Systems Constitutional: DENIES: Fatigue, Weight gain, Chills, Change in appetite Endocrine: DENIES: Polydipsia, Polyuria, Polyphagia Eyes: DENIES: Diplopia, Eye inflammation Ears, nose, mouth, throat: DENIES: Hearing loss Respiratory: DENIES: Cough Cardiovascular: COMPLAINS OF: Dyspnea on Exertion, DENIES: Chest pain, Palpitations, Syncope Gastrointestinal: COMPLAINS OF: Nausea, DENIES: Abdominal pain, Vomiting Genitourinary: DENIES: Urinary frequency Musculoskeletal: DENIES: Joint pain Integumentary: DENIES: Abnormal pigmentation Hematologic/lymphatic: DENIES: Bruising Immunologic/allergic: DENIES: Eczema Neurologic: DENIES: Headache Psychiatric: DENIES: Confusion, Mood changes, Depression Past Family Social History Past Medical History Hypertension Basal cell carcinoma Kidney stones DVT in LEFT leg Past Surgical History LEFT hip surgery Lithotripsy Allergies: Coded Allergies: *MDRO Multi-Drug Resistant Organism (Verified Adverse Reaction, Unknown, MRSA, 07/03/17) MRSA (blood & urine) - 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/10 Active Ordered Medications Current Medications Medications (Trade) Dose Ordered Sig/Case Route Start Time Stop Time Status Last Admin Sodium Chloride 1,000 ml @ 84 mls/hr [id number] IV 07/03/17 14:00 07/03/17 14:00 (NS Flush) 2 ml UNSCH PRN IV FLUSH 07/03/17 13:45 (NS Flush) 2 ml BID IV FLUSH 07/03/17 21:00 (Pepcid Inj) 10 mg Q12H IV PUSH 07/03/17 14:00 07/03/17 14:00 (Zofran Inj) 4 mg Q6H PRN IV PUSH 07/03/17 13:45 (Heparin Inj) 5,000 units Q12H SQ 07/03/17 14:00 07/03/17 14:00 Miscellaneous Information 1 [id number] XX 07/03/17 13:45 07/03/17 13:45 (Chlorhexidine 2% Cloth) 3 pack Taper DAILY@04 TOP 07/04/17 04:00 06/30/18 03:59 (Chlorhexidine 2% Cloth) 3 pack UNSCH PRN TOP 07/03/17 13:45 (Adore-Colace) 1 tab BID PO 07/03/17 21:00 (Milk Of Magnesia Liq) 30 ml Q12H PRN PO 07/03/17 13:45 (Senokot) 17.2 mg Q12H PRN PO 07/03/17 13:45 (Dulcolax Supp) 10 mg DAILY PRN RECTAL 07/03/17 13:45 (Lactulose Liq) 30 ml DAILY PRN PO 07/03/17 13:45 (Racepinephrine 2.25% Neb) 0.5 ml Q3HR NEB PRN NEB 07/03/17 13:45 07/03/17 15:08 Ceftriaxone Sodium 2000 mg/ Sodium Chloride 100 ml @ 200 mls/hr Q24H IV 07/03/17 14:00 07/03/17 14:00 (Benadryl Inj) 25 mg Q6H PRN IM 07/03/17 14:00 (Lopressor Inj) 2.5 mg Q6H PRN IV PUSH 07/03/17 14:00 07/03/17 15:28 (Decadron Inj) 6 mg Q6HR IV PUSH 07/03/17 18:00 Family History Non contributory Social History Denies tobacco use Denies ETOH use Denies illicit drug use Lives alone. Physical Exam Vital Signs Vital Signs Date Time Temp Pulse Resp B/P (MAP) Pulse Ox O2 Delivery O2 Flow Rate FiO2 07/03/17 12:50 103 18 170/95 (120) 100 Room Air 07/03/17 08:32 97.9 138 20 199/98 (131) 98 Room Air Physical Exam GENERAL: 61 year old male resting in bed in no acute respiratory distress. SKIN: Warm and dry. HEAD: Atraumatic. Normocephalic. EYES: Pupils equal and round. No scleral icterus. No injection or drainage. ENT: No nasal bleeding or discharge. Mucous membranes pink and moist. NECK: Trachea midline. No incisions visualized on neck. CARDIOVASCULAR: Regular rate and rhythm. RESPIRATORY: No accessory muscle use. Clear to auscultation. Breath sounds equal bilaterally. No evidence of accessory muscle use. GASTROINTESTINAL: Abdomen soft, non-tender, nondistended. MUSCULOSKELETAL: Extremities without clubbing, cyanosis, or edema. No obvious deformities. NEUROLOGICAL: Awake and alert. No obvious cranial nerve deficits. Motor grossly within normal limits. Five out of 5 muscle strength in the arms and legs. Normal speech. PSYCHIATRIC: Appropriate mood and affect; insight and judgment normal. Laboratory Laboratory Tests Test 07/03/17 09:40 White Blood Count 15.7 Red Blood Count 5.61 Hemoglobin 16.4 Hematocrit 49.2 Mean Corpuscular Volume 87.6 Mean Corpuscular Hemoglobin 29.3 Mean Corpuscular Hemoglobin Concent 33.4 Red Cell Distribution Width 15.6 Platelet Count 129 Mean Platelet Volume 7.7 Neutrophils (%) (Auto) 85.5 Lymphocytes (%) (Auto) 1.7 Monocytes (%) (Auto) 12.7 Eosinophils (%) (Auto) 0.0 Basophils (%) (Auto) 0.1 Neutrophils # (Auto) 13.4 Lymphocytes # (Auto) 0.3 Monocytes # (Auto) 2.0 Eosinophils # (Auto) 0.0 Basophils # (Auto) 0.0 CBC Comment DIFF FINAL Differential Comment Blood Urea Nitrogen 6 Creatinine 2.59 Random Glucose 144 Total Protein 9.8 Albumin 4.6 Calcium Level 9.9 Alkaline Phosphatase 146 Aspartate Amino Transf (AST/SGOT) 197 Alanine Aminotransferase (ALT/SGPT) 64 Total Bilirubin 6.9 Sodium Level 146 Potassium Level 3.0 Chloride Level 98 Carbon Dioxide Level 23.2 Anion Gap 25 Estimat Glomerular Filtration Rate 25 Lipase 129 Result Diagram: 07/03/17 0940 07/03/17 0940 Imaging Last [address] 07/03/17 0000 Signed Impressions: Service Date/Time: Monday, July 03, 2017 10:37 - CONCLUSION: Abnormal significant prevertebral soft tissue thickening measuring up to 2.9 cm, greatest in thickness in the subglottic region, but extending up to the hypopharynx. The soft tissue thickening causes narrowing of the hypopharyngeal airway. The This is a new finding when compared to prior MRI in May 2016. Meir Singh MD Chest CT 07/03/17 0000 Signed Impressions: Service Date/Time: Monday, July 03, 2017 10:37 - CONCLUSION: 1. Concentric thickening of the esophageal wall from superior mediastinum to GE junction suggests esophagitis. 2. No evidence of pneumomediastinum. 3. 5 mm nodular density in the lateral right midlung could represent focal thickening of the pleura or a solitary nodule. Recommend followup CT in 6 months. Meir Singh MD Assessment and Plan Assessment and Plan 61 year old male with airway compromise; unknown etiology at this time -Continue scheduled Decadron and racemic epinephrine -NPO -Close monitoring of respiratory status -Continue IVF -Continue antibiotics -STAT PT/INR -Have supplies ready at bedside for tracheostomy tube placement should he need one -Thank you for this consult; We will continue to follow Discussed Condition With Cayla Chaney Dr./Lead Embedded Software Engineer GRACY Jul 03, 2017 15:36
--- NOTE | 2017-07-03 15:53 | HHI.HP ---
HPI Service Critical Care Medicine Primary Care Physician Gracy Hidalgo Admission Diagnosis Impending airway compromise Diagnosis: Travel History International Travel<30 Days: No Contact w/Intl Traveler <30 Da: No Traveled to Known Affected Are: No History of Present Illness HPI This is a 61 year old male , that presented to [facility] ED , complaining of difficulty swallowing that started yesterday after vomiting. He says that whenever he tries to swallow, he chokes and it comes back up his nose. He denies any pain. He denies sore throat, fevers, congestion. The patient was noted to have dysphagia, and hoarseness. The patient's medical history is significant for hypertension the patient has not been compliant with his antihypertensive medication stating he ran out of bed a while ago, 2 weeks, type of medication unknown. Laboratory and imaging studies were performed, CT neck revealed significant narrowing of the infraglottic airway thickening extending from the left lateral pharyngeal wall bilateral to the level of the base of epiglottis. CT chest showed esophagitis emanating from the mediastinum to the GE junction. In the ED the patient received Decadron 10 mg 1 dose, one racemic epi nebulizer treatment. Critical care medicine was consulted. I consulted ENT Dr. Naylor, and discussed case with general surgery Dr. Ramos and Ms. Ang, in the event of possible emergent tracheostomy/or cricothyrotomy. History PFSH Past Medical History Arthritis: No Asthma: No Autoimmune Disease: No Anxiety: No Depression: No Heart Rhythm Problems: No Cancer: Yes (basal cell carcinoma) Cardiovascular Problems: Yes (HBP) High Cholesterol: No Chemotherapy: No Chest Pain: No Congestive Heart Failure: No COPD: No Cerebrovascular Accident: No Diabetes: No Diminished Hearing: No Endocrine: No GERD: No Genitourinary: No Hepatitis: No Hiatal Hernia: No Hypertension: Yes Immune Disorder: No Kidney Stones: Yes Musculoskeletal: No Neurologic: No Psychiatric: No Reproductive: No Respiratory: No Migraines: No Radiation Therapy: No Renal Failure: No Seizures: No Sleep Apnea: No Thyroid Disease: No Ulcer: No Past Surgical History Abdominal Surgery: No AICD: No Arteriovenous Shunt: No Body Medical Devices: 3 SCREWS LEFT HIP Cardiac Surgery: No Ear Surgery: No Endocrine Surgery: No Eye Surgery: No Genitourinary Surgery: Yes (NEPHROSTOMY TUBE KIDNEY STONE LEFT ) Gynecologic Surgery: No Insulin Pump: No Joint Replacement: No Pacemaker: No Thoracic Surgery: No Other Surgery: Yes (LITHOTRIPSY) Social History Alcohol Use: No (QUIT 05/13/10) Tobacco Use: No Substance Use: No Allergies-Medications Allergies-Medications (Allergen,Severity, Reaction): Coded Allergies: *MDRO Multi-Drug Resistant Organism (Verified Adverse Reaction, Unknown, MRSA, 07/03/17) MRSA (blood & urine) - 06/30/10 Reported Meds & Prescriptions Reported Meds & Active Scripts Active Amlodipine (Amlodipine Besylate) 10 Mg Tab 10 Mg PO DAILY Hydrocodone-Acetaminophen 5-325 mg Tab 1 Tab PO Q6H PRN Reported Warfarin 10 Mg Tab 10 Mg PO DAILY Enoxaparin Inj (Enoxaparin Sodium) 150 Mg/Ml Syr 150 Mg SQ DAILY Tramadol (Tramadol HCl) 50 Mg Tab 50 Mg PO BID PRN Fish Oil 1,000 mg Softgel ([place]-3/Dha/Epa/Fish Oil) 1,000 Mg Capsule 1 Cap PO DAILY ROS Review of Systems Except as stated in HPI: all other systems reviewed are Neg General / Constitutional: No: Fever, Chills HENT: No: Headaches, Lightheadedness, Sore Throat Cardiovascular: No: Chest Pain or Discomfort Gastrointestinal: Positive: Vomiting, No: Abdominal Pain Musculoskeletal: No: Myalgias Skin: No Rash, No Change in Pigmentation Neurologic: No: Weakness Physical Exam Vital Signs Vital Signs Date Time Temp Pulse Resp B/P (MAP) Pulse Ox O2 Delivery O2 Flow Rate FiO2 07/03/17 12:50 103 18 170/95 (120) 100 Room Air 07/03/17 08:32 97.9 138 20 199/98 (131) 98 Room Air Physical Exam GENERAL: Well-developed well-nourished male sitting up in bed with dysphagia, complains of an inability to manage secretions. SKIN: Warm and dry. HEAD: Atraumatic. Normocephalic. EYES: Pupils equal and round. No scleral icterus. No injection or drainage. ENT: No nasal bleeding or discharge. Mucous membranes pink and moist. Mallampati grade 3, no visualization of uvula NECK: Trachea midline. No JVD. CARDIOVASCULAR: Normal rate, regular rhythm. RESPIRATORY: No accessory muscle use. Clear to auscultation. Breath sounds equal bilaterally. GASTROINTESTINAL: Abdomen soft, non-tender, acute nondistended. No guarding. SKIN: Erythematous nodules areas on face, scalp, bilateral extremities bandage on left chest noted from previous movable of basal cell carcinoma MUSCULOSKELETAL: Extremities without clubbing, cyanosis, or edema. No obvious deformities. NEUROLOGICAL: Awake and alert. RASS 0. No gross focal/sensory deficits. Follows commands in all 4 extremities. Laboratory Laboratory Tests Test 07/03/17 09:40 White Blood Count 15.7 Red Blood Count 5.61 Hemoglobin 16.4 Hematocrit 49.2 Mean Corpuscular Volume 87.6 Mean Corpuscular Hemoglobin 29.3 Mean Corpuscular Hemoglobin Concent 33.4 Red Cell Distribution Width 15.6 Platelet Count 129 Mean Platelet Volume 7.7 Neutrophils (%) (Auto) 85.5 Lymphocytes (%) (Auto) 1.7 Monocytes (%) (Auto) 12.7 Eosinophils (%) (Auto) 0.0 Basophils (%) (Auto) 0.1 Neutrophils # (Auto) 13.4 Lymphocytes # (Auto) 0.3 Monocytes # (Auto) 2.0 Eosinophils # (Auto) 0.0 Basophils # (Auto) 0.0 CBC Comment DIFF FINAL Differential Comment Blood Urea Nitrogen 6 Creatinine 2.59 Random Glucose 144 Total Protein 9.8 Albumin 4.6 Calcium Level 9.9 Alkaline Phosphatase 146 Aspartate Amino Transf (AST/SGOT) 197 Alanine Aminotransferase (ALT/SGPT) 64 Total Bilirubin 6.9 Sodium Level 146 Potassium Level 3.0 Chloride Level 98 Carbon Dioxide Level 23.2 Anion Gap 25 Estimat Glomerular Filtration Rate 25 Lipase 129 Result Diagram: 07/03/1740 07/03/1740 Imaging Last Impressions Neck CT 07/03/17 0000 Signed Impressions: Service Date/Time: Monday, July 03, 2017 10:37 - CONCLUSION: Abnormal significant prevertebral soft tissue thickening measuring up to 2.9 cm, greatest in thickness in the subglottic region, but extending up to the hypopharynx. The soft tissue thickening causes narrowing of the hypopharyngeal airway. The This is a new finding when compared to prior MRI in May 2016. Meir Singh MD Chest CT 07/03/17 0000 Signed Impressions: Service Date/Time: Monday, July 03, 2017 10:37 - CONCLUSION: 1. Concentric thickening of the esophageal wall from superior mediastinum to GE junction suggests esophagitis. 2. No evidence of pneumomediastinum. 3. 5 mm nodular density in the lateral right midlung could represent focal thickening of the pleura or a solitary nodule. Recommend followup CT in 6 months. Meir Singh MD Septic Shock Reassessment Septic shock perfusion: reassessment completed Caprini VTE Risk Assessment Caprini VTE Risk Assessment: Mod/High Risk (score >= 2) Caprini Risk Assessment Model Point Value = 1 Point Value = 2 Point Value = 3 Point Value = 5 Age 41-60 Minor surgery BMI > 25 kg/m2 Swollen legs Varicose veins or History of unexplained or recurrent spontaneous Oral contraceptives or hormone replacement Sepsis (< 1 month) Serious lung disease, including pneumonia (< 1 month) Abnormal pulmonary function Acute myocardial infarction Congestive heart failure (< 1 month) History of inflammatory bowel disease Medical patient at bed rest Age 61-74 Arthroscopic surgery Major open surgery (> 45 min) Laparoscopic surgery (> 45 min) Malignancy Confined to bed (> 72 hours) Immobilizing plaster cast Central venous access Age >= 75 History of VTE Family history of VTE Factor V Leiden Prothrombin [id number] Lupus anticoagulant Anticardiolipin antibodies Elevated serum homocysteine Heparin-induced thrombocytopenia Other congenital or acquired thrombophilia Stroke (< 1 month) Elective arthroplasty Hip, pelvis, or leg fracture Acute spinal cord injury (< 1 month) Prophylaxis Regimen Total Risk Factor Score Risk Level Prophylaxis Regimen 0-1 Low Early ambulation 2 Moderate Order ONE of the following: *Sequential Compression Device (SCD) *Heparin 5000 units SQ BID 3-4 Higher Order ONE of the following medications: *Heparin 5000 units SQ TID *Enoxaparin/Lovenox 40 mg SQ daily (WT < 150 kg, CrCl > 30 mL/min) *Enoxaparin/Lovenox 30 mg SQ daily (WT < 150 kg, CrCl > 10-29 mL/min) *Enoxaparin/Lovenox 30 mg SQ BID (WT < 150 kg, CrCl > 30 mL/min) AND/OR *Sequential Compression Device (SCD) 5 or more Highest Order ONE of the following medications: *Heparin 5000 units SQ TID (Preferred with Epidurals) *Enoxaparin/Lovenox 40 mg SQ daily (WT < 150 kg, CrCl > 30 mL/min) *Enoxaparin/Lovenox 30 mg SQ daily (WT < 150 kg, CrCl > 10-29 mL/min) *Enoxaparin/Lovenox 30 mg SQ BID (WT < 150 kg, CrCl > 30 mL/min) AND *Sequential Compression Device (SCD) Assessment and Plan Assessment and Plan This is a 61-year-old male that reports having a severe episode of vomiting last evening with resultant respiratory distress and difficulty with management of secretions. The dysphasia and hoarseness after severe retching. CT shows soft tissue edema 2.9 cm in the subglottic region but extending only up to the hypopharynx, as well as esophagitis. Patient is at risk for possible emergent intubation vs. emergent tracheostomy or cricothyrotomy. Admit to ICU. Plan by systems: Neurologic: Monitor neuro status per ICU protocol Avoid sedative type medications Tylenol for temperature greater than 101.0, or pain Respiratory: Acute hypoxemic respiratory insufficiency Airway edema Maintain O2 sat greater than 92% Supply cool aerosolized O2 Racemic epinephrine nebs every 3 hours PRN Initiate antibiotics see below ID section Begin H1-diphenhydramine 30 mg IV 1 dose, then 25 mg every 6 hours Begin H2 blockers- Famotidine every 12 hours Continue Decadron 6mg q 6 hrs ENT consulted- Case d/w Dr. Naylor General surgery consulted- d/w Dr. Ramos 07/03 CT neck-soft tissue thickening narrowing infraglottic airway thickening extending into lateral pharyngeal li bilaterally to the level of the base of the epiglottis 07/03 CT chest-abnormal appearance of esophagitis from with thickness to GE junction 2.9 cm greatest and subglottic region but extending up to hypopharynx. Narrowing of hypopharynx Cardiovascular: HTN Pt previously on Norvasc 10 mg/day but ran out of medication, resume meds Telemetry- sinus tach Renal: Elevated creatinine Gray not required at this time. Place condom catheter Bladder scan if no urine output greater than 6 hours -- Strict I/Os FEN/GI: Normal saline 84cc/hr Maintain NPO status Zofran for nausea Bowel regimen Monitor BMP Heme/ID: Possible anaphylaxis Leukocytosis Vancomycin 1 g x one dose Ceftriaxone 2 g every 24 hours F/U blood culture Obtain Infuenza antigen Endocrine: Close monitoring per ICU protocol -- SSI Prophylaxis: GI Prophylaxis Famotidine twice a day DVT Prophylaxis -- SCDs Subcutaneous heparin BID Lines: Peripheral IVs 2. Central line if indicated Dispo: my billing statement This patient remains critically ill with one or more organ systems which are or may become a threat to life. I have spent in excess of 49 minutes discontinuously in the care and management of this patient. This time is exclusive of procedures, and includes, but is not limited to, evaluation of the patient, review of the medical record, discussions with family, consultants, nursing staff, or respiratory therapy, and documentation in the medical record. Code Status Full Discussed Condition With Cyndy Steward , Ms. Ang , patient and WILDLIFE CONSERVATIONIST at bedside (Ronny) Jeannie Lal MD Jul 03, 2017 15:53
[2017-07-03] MEDS: DEXAMETHASONE SOD PHOS 4 MG/ML VIAL IV PUSH SCH ×2 (17:56→23:38)
[2017-07-03] MEDS ORDERED: DEXAMETHASONE SOD PHOS 4 MG/ML VIAL IV PUSH SCH (18:00)
[2017-07-03 18:10] LABS: INTERNATIONAL NORMALIZED RATIO 1.3 RATIO; PROTHROMBIN TIME - PATIENT 12.9 SEC (9.8-11.6)
[2017-07-03] MEDS: DOCUSATE SODIUM 50 MG/SENNA 8.6 MG TAB PO SCH (20:32)
[2017-07-03] MEDS: SODIUM CHLORIDE 0.9% FLUSH 10 ML FLUSH IV FLUSH SCH (20:32)
[2017-07-04] VITALS (17 sets, daily range): BP systolic 134–159; BP diastolic 77–90; PULSE 81–103; RESP 15–25; TEMP 97.5–99.4; O2SAT 93–98
[2017-07-04] MEDS: SODIUM CHLOR 0.9% 1000 ML INJ 1,000 ML IV SCH (01:21)
[2017-07-04] MEDS: FAMOTIDINE 20 MG/2 ML VIAL IV PUSH SCH ×2 (01:47→14:10)
[2017-07-04] MEDS: CHLORHEXIDINE GLUCONATE 2 % 1 PACK (2 CLOTHS) TOP SCH (04:00)
--- NOTE | 2017-07-04 04:54 | RADRPT ---
EXAM DATE/TIME: 07/04/2017 03:49 [facility] COMPARISON: CHEST SINGLE AP, February 26, 2016, 13:06. INDICATIONS : Short of breath. MEDICAL HISTORY : None. SURGICAL HISTORY : None. ENCOUNTER: Subsequent ACUITY: 3 days PAIN SCORE: 0/10 LOCATION: Bilateral chest FINDINGS: 2 AP portable semierect views of the chest demonstrates the lungs to be symmetrically aerated without evidence of mass, infiltrate or effusion. The cardiomediastinal contours are unremarkable. Osseous structures are intact. CONCLUSION: No acute disease. Tobias Juarez MD on July 04, 2017 at 4:52 Board Certified Radiologist. This report was verified electronically.
[2017-07-04] MEDS: DEXAMETHASONE SOD PHOS 4 MG/ML VIAL IV PUSH SCH ×4 (05:01→23:29)
[2017-07-04 07:29] LABS: AUTOMATED NEUTROPHIL # 9.2 TH/MM3 (1.8-7.7); BASOPHIL % 0.1 % (0.0-2.0); HEMATOCRIT 42.6 % (39.0-51.0); HEMOGLOBIN 14.3 GM/DL (13.0-17.0); LYMPH % 3.7 % (9.0-44.0); LYMPHOCYTE # 0.4 TH/MM3 (1.0-4.8); MEAN CELL VOLUME 88.5 FL (80.0-100.0); MEAN CORPUSCULAR HEMOGLOBIN 29.7 PG (27.0-34.0); MEAN CORPUSCULAR HGB CONC 33.5 % (32.0-36.0); MONOCYTE # 0.5 TH/MM3 (0-0.9); NEUT % 91.2 % (16.0-70.0); PLATELET COUNT 67 TH/MM3 (150-450); RED BLOOD COUNT 4.81 MIL/MM3 (4.50-5.90); RED CELL DISTRIBUTION WIDTH 15.9 % (11.6-17.2); WHITE BLOOD COUNT 10.1 TH/MM3 (4.0-11.0)
[2017-07-04 07:56] LABS: ALBUMIN 3.6 GM/DL (3.4-5.0); ALT (GPT) 38 U/L (12-78); AST (GOT) 88 U/L (15-37); BICARBONATE 30.7 MEQ/L (21.0-32.0); BLOOD UREA NITROGEN 17 MG/DL (7-18); CALCIUM 8.7 MG/DL (8.5-10.1); CHLORIDE 107 MEQ/L (98-107); CREATININE 1.06 MG/DL (0.60-1.30); GLOMERULAR FILTRATION RATE 71 ML/MIN (>89); GLUCOSE,RANDOM 95 MG/DL (74-106); MAGNESIUM 1.3 MG/DL (1.5-2.5); PHOSPHORUS 1.6 MG/DL (2.5-4.9); SODIUM (NA) 150 MEQ/L (136-145)
[2017-07-04 08:02] LABS: ALKALINE PHOSPHATASE 95 U/L (45-117); TOTAL BILIRUBIN ADULT 4.1 MG/DL (0.2-1.0); TOTAL PROTEIN 7.6 GM/DL (6.4-8.2)
--- NOTE | 2017-07-04 08:23 | HHI.CCPN ---
Subjective Remarks/Hospital Course This is a 61 year old male , that presented to [facility] ED , complaining of difficulty swallowing that started yesterday after vomiting. He says that whenever he tries to swallow, he chokes and it comes back up his nose. He denies any pain. He denies sore throat, fevers, congestion. The patient was noted to have dysphagia, and hoarseness. The patient's medical history is significant for hypertension the patient has not been compliant with his antihypertensive medication stating he ran out of bed a while ago, 2 weeks, type of medication unknown. Laboratory and imaging studies were performed, CT neck revealed significant narrowing of the infraglottic airway thickening extending from the left lateral pharyngeal wall bilateral to the level of the base of epiglottis. CT chest showed esophagitis emanating from the mediastinum to the GE junction. In the ED the patient received Decadron 10 mg 1 dose, one racemic epi nebulizer treatment. Critical care medicine was consulted. I consulted ENT Dr. Naylor, and discussed case with general surgery Dr. Ramos and Ms. Ang, in the event of possible emergent tracheostomy/or cricothyrotomy. Subjective: 07/04: The patient remains on aerosolized cool mist with FiO2 at 0.28, O2 saturation, 100%. The patient states he feels better and is able to manage his secretions, effectively. The patient remains NPO, ENT Dr. Naylor tentatively scheduled to perform flex bronchoscopy today. Hoarseness resolved, creatinine much improved with hydration. Patient's antihypertensive med Vasotec, last taken greater than 2 weeks ago, reinitiated today. Objective Vital Signs Date Time Temp Pulse Resp B/P (MAP) Pulse Ox O2 Delivery O2 Flow Rate FiO2 07/04/17 06:00 92 07/04/17 06:00 17 153/87 (109) 96 07/04/17 04:00 98.4 07/03/17 20:00 Aerosol Mask 28 Intake and Output 07/04/17 07/04/17 07/04/17 07:59 15:59 23:59 Intake Total 958 ml Output Total 200 ml Balance 758 ml Result Diagram: 07/04/17 0635 07/04/17 0635 Other Results Microbiology Date/Time Source Procedure Growth Status 07/03/17 16:00 Nasal Washing Influenza Types A,B Antigen (BERNARDO) - Final NEGATIVE FOR FLU A AND B ANTIGEN.... Complete Imaging Last Impressions Neck CT 07/03/17 0000 Signed Impressions: Service Date/Time: Monday, July 03, 2017 10:37 - CONCLUSION: Abnormal significant prevertebral soft tissue thickening measuring up to 2.9 cm, greatest in thickness in the subglottic region, but extending up to the hypopharynx. The soft tissue thickening causes narrowing of the hypopharyngeal airway. The This is a new finding when compared to prior MRI in May 2016. Meir Singh MD Chest CT 07/03/17 0000 Signed Impressions: Service Date/Time: Monday, July 03, 2017 10:37 - CONCLUSION: 1. Concentric thickening of the esophageal wall from superior mediastinum to GE junction suggests esophagitis. 2. No evidence of pneumomediastinum. 3. 5 mm nodular density in the lateral right midlung could represent focal thickening of the pleura or a solitary nodule. Recommend followup CT in 6 months. Meir Singh MD Objective Remarks GENERAL: Well-developed well-nourished male sitting up in bed in no acute distress SKIN: Warm and dry. HEAD: Atraumatic. Normocephalic. EYES: Pupils equal and round. No scleral icterus. No injection or drainage. ENT: No nasal bleeding or discharge. Mucous membranes pink and moist. Mallampati grade 3, no visualization of uvula, aerosolized of FiO2 0.2 a NECK: Trachea midline. No JVD. CARDIOVASCULAR: Normal rate, regular rhythm. RESPIRATORY: No accessory muscle use. Clear to auscultation. Breath sounds equal bilaterally. GASTROINTESTINAL: Abdomen soft, non-tender, acute nondistended. No guarding. SKIN: Erythematous nodules areas on face, scalp, bilateral extremities bandage on left chest noted from previous movable of basal cell carcinoma MUSCULOSKELETAL: Extremities without clubbing, cyanosis, or edema. No obvious deformities. NEUROLOGICAL: Awake and alert. RASS 0. No gross focal/sensory deficits. Follows commands in all 4 extremities. A/P Assessment and Plan This is a 61-year-old male that reports having a severe episode of vomiting last evening with resultant respiratory distress and difficulty with management of secretions. The dysphasia and hoarseness after severe retching. CT shows soft tissue edema 2.9 cm in the subglottic region but extending only up to the hypopharynx, as well as esophagitis. Patient is at risk for possible emergent intubation vs. emergent tracheostomy or cricothyrotomy. Admit to ICU. Plan by systems: Neurologic: Monitor neuro status per ICU protocol Avoid sedative type medications Tylenol for temperature greater than 101.0, or pain Respiratory: Acute hypoxemic respiratory insufficiency Airway edema Maintain O2 sat greater than 92% Continue cool aerosolized O2 at .28 Racemic epinephrine nebs every 3 hours PRN Initiate antibiotics see below ID section Continue H1-diphenhydramine 30 mg IV 1 dose, then 25 mg every 6 hours Continue H2 blockers- Famotidine every 12 hours Continue Decadron 6mg q 6 hrs- recommendations per ENT ENT following- Dr. Naylor, tentative plan for flexible bronchoscopy today General surgery following- d/w Dr. Ramos 07/03 CT neck-soft tissue thickening narrowing infraglottic airway thickening extending into lateral pharyngeal li bilaterally to the level of the base of the epiglottis 07/03 CT chest-abnormal appearance of esophagitis from with thickness to GE junction 2.9 cm greatest and subglottic region but extending up to hypopharynx. Narrowing of hypopharynx Cardiovascular: HTN Pt previously on Norvasc 10 mg/day but ran out of medication 2 weeks ago, resume meds, I do not think ACEI last taken 2 weeks ago is responsible for acute edema Telemetry- SR Continue home med Vasotec 10mg/d Renal: Elevated creatinine- resolved Gray not required at this time. Place condom catheter Bladder scan if no urine output greater than 6 hours, and straight cath if > 200 cc -- Strict I/Os FEN/GI: Change IVF D51/2 NSS 84cc/hr Continue NPO status Initiate electrolyte replacement protocol Zofran for nausea Bowel regimen Monitor BMP Heme/ID: Possible anaphylaxis Leukocytosis Vancomycin 1 g x one dose Continue Ceftriaxone 2 g every 24 hours F/U blood culture- NGTD 07/03 Influenza antigen- negative Patient has history of MRSA in 2010, placed on contact isolation, swab results pending Endocrine: Close monitoring per ICU protocol -- SSI Prophylaxis: GI Prophylaxis Famotidine twice a day DVT Prophylaxis -- SCDs Subcutaneous heparin BID- currently on hold 06/15 possibility of an emergent airway intervention Lines: Peripheral IVs 2. Central line if indicated Dispo: Level 3 Follow up. [facility] Physician Jeannie Osborne MD Jul 04, 2017 08:23
[2017-07-04] MEDS ORDERED: MAGNESIUM SULFATE INJ 4 GM in SODIUM CHLORIDE 0.9% INJ 92 ML IV PRN (08:45)
[2017-07-04] MEDS ORDERED: POTASSIUM CHLORIDE 25 MEQ EFFERVESCENT TAB PO PRN (08:45)
[2017-07-04] MEDS ORDERED: POTASSIUM PHOSPHATE MONOBASIC 500 MG TAB PO PRN (08:45)
[2017-07-04] MEDS ORDERED: POTASSIUM CHLOR 20 MEQ PREMIX 100 ML IV PRN (08:45)
[2017-07-04] MEDS ORDERED: POTASSIUM PHOSPHATE MONOBASIC 500 MG TAB PO/TUBE PRN (08:45)
[2017-07-04] MEDS ORDERED: SODIUM PHOSPHATE INJ 30 MMOL in SODIUM CHLOR 0.9% 250 ML INJ 240 ML IV PRN (08:45)
[2017-07-04] MEDS ORDERED: MAGNESIUM OXIDE 400 MG TAB PO PRN (08:45)
[2017-07-04] MEDS ORDERED: POTASSIUM PHOSPHATE INJ 30 MMOL in SODIUM CHLOR 0.9% 250 ML INJ 250 ML IV PRN (08:45)
[2017-07-04] MEDS ORDERED: POTASSIUM CHLOR 40 MEQ PREMIX 100 ML IV PRN ×2 (08:45)
[2017-07-04] MEDS: DEXT 5%-NACL 0.45% 1000 ML INJ 1,000 ML IV SCH ×2 (09:38→21:11)
[2017-07-04] MEDS: DOCUSATE SODIUM 50 MG/SENNA 8.6 MG TAB PO SCH ×2 (09:39→21:00)
[2017-07-04] MEDS: ENALAPRIL MALEATE 10 MG TAB PO SCH (09:39)
[2017-07-04] MEDS: SODIUM CHLORIDE 0.9% FLUSH 10 ML FLUSH IV FLUSH SCH ×2 (09:39→21:11)
[2017-07-04 09:40] LABS: BANDS 11 % (0-6); CORRECTED NUCLEATED RBC 1 /100 WBC (0-0); LYMPHOCYTES 3 % (9-44); MONOCYTES 3 % (0-8); NEUTROPHIL # MANUAL DIFF 9.5 TH/MM3 (1.8-7.7); NUCLEATED RED BLOOD CELL 1 (0-0); POLYS (SEG NEUTROPHILS) 83 % (16-70)
[2017-07-04] MEDS ORDERED: INFLUENZA VIRUS VACCINE (QUADRIVALENT) 0.5 ML SYR IM ONE (10:00)
[2017-07-04] MEDS: MAGNESIUM SULFATE INJ 2 GM in SODIUM CHLORIDE 0.9% INJ 96 ML IV PRN ×2 (10:16→23:40)
--- NOTE | 2017-07-04 10:24 | PD.CONS ---
History of Present Illness Service ENT Consult Requested By [facility] Reason for Consult Airway obstruction Primary Care Physician Gracy Hidalgo Diagnoses: History of Present Illness 61 year old man presented last night with upper airway and esophageal obstruction. Initially he noted difficulty swallowing and could not get fluid down. He presented to the ED. He did show an elevated WBC and CT confirmed upper esophageal and pharyngeal edema. He was treated with racemic epinephrine, steroids and antibiotics. He has had good improvement overnigth. Hoarseness, airway obstruction and dysphagia are all improved. He was able to take clear liquids. Review of Systems Ears, nose, mouth, throat: COMPLAINS OF: Throat pain, Hoarseness, Odynophagia, DENIES: Vertigo, Nasal discharge, Oral lesions, Ear Pain Respiratory: COMPLAINS OF: Shortness of breath Past Family Social History Allergies: Coded Allergies: *MDRO Multi-Drug Resistant Organism (Verified Adverse Reaction, Unknown, MRSA, 07/03/17) MRSA (blood & urine) - 06/30/10 Physical Exam Vital Signs Vital Signs Date Time Temp Pulse Resp B/P (MAP) Pulse Ox O2 Delivery O2 Flow Rate FiO2 07/04/17 08:57 93 Aerosol Mask 6.00 28 07/04/17 06:00 92 07/04/17 06:00 92 17 153/87 (109) 96 07/04/17 05:00 91 19 149/88 (108) 94 07/04/17 04:00 98.4 90 17 157/89 (111) 95 07/04/17 04:00 90 07/04/17 03:00 93 18 146/83 (104) 94 07/04/17 02:00 88 25 145/82 (103) 94 07/04/17 02:00 88 07/04/17 01:00 91 15 146/82 (103) 96 07/04/17 00:00 92 07/04/17 00:00 98.2 92 16 158/89 (112) 95 07/03/17 23:00 97 14 161/80 (107) 96 07/03/17 22:00 96 07/03/17 22:00 96 21 155/90 (111) 96 07/03/17 21:00 97 21 141/81 (101) 95 07/03/17 20:00 95 Aerosol Mask 28 07/03/17 20:00 96 07/03/17 20:00 98.8 96 15 165/96 (119) 95 07/03/17 19:00 103 22 166/96 (119) 96 07/03/17 18:00 102 24 150/83 (105) 96 07/03/17 18:00 103 07/03/17 17:00 98.4 103 22 152/95 (114) 98 07/03/17 16:00 101 07/03/17 16:00 98.4 101 24 158/91 (113) 96 07/03/17 14:30 102 07/03/17 14:30 98.1 117 28 139/117 (124) 97 07/03/17 12:50 103 18 170/95 (120) 100 Room Air Physical Exam GENERAL: This is a well-nourished, well-developed patient, in no apparent distress. SKIN: No rashes, ecchymoses or lesions. Cool and dry. HEAD: Atraumatic. Normocephalic. No temporal or scalp tenderness. EYES: Pupils equal round and reactive. Extraocular motions intact. No scleral icterus. No injection or drainage. ENT: Nose without bleeding, purulent drainage or septal hematoma. Throat without erythema, tonsillar hypertrophy or exudate. Uvula midline. Airway patent. NECK: Trachea midline. No JVD or lymphadenopathy. Supple, nontender, no meningeal signs. FIBEROPTIC LARYNGOSCOPY: Normal pharynx and hypopharynx. Good vocal cord mobility. No laryngeal edema. NEUROLOGICAL: Awake and alert. Normal speech. Laboratory Laboratory Tests Test 07/03/17 17:37 07/04/17 06:35 07/04/17 09:05 Prothrombin Time 12.9 Prothromb Time International Ratio 1.3 White Blood Count 10.1 Red Blood Count 4.81 Hemoglobin 14.3 Hematocrit 42.6 Mean Corpuscular Volume 88.5 Mean Corpuscular Hemoglobin 29.7 Mean Corpuscular Hemoglobin Concent 33.5 Red Cell Distribution Width 15.9 Platelet Count 67 Mean Platelet Volume 8.0 Neutrophils (%) (Auto) 91.2 Lymphocytes (%) (Auto) 3.7 Monocytes (%) (Auto) 5.0 Eosinophils (%) (Auto) 0.0 Basophils (%) (Auto) 0.1 Neutrophils # (Auto) 9.2 Lymphocytes # (Auto) 0.4 Monocytes # (Auto) 0.5 Eosinophils # (Auto) 0.0 Basophils # (Auto) 0.0 CBC Comment AUTO DIFF Differential Total Cells Counted 100 Neutrophils % (Manual) 83 Band Neutrophils % 11 Lymphocytes % 3 Monocytes % 3 Neutrophils # (Manual) 9.5 Nucleated Red Blood Cells 1 Differential Comment FINAL DIFF MANUAL Platelet Estimate LOW Platelet Morphology Comment NORMAL Blood Urea Nitrogen 17 Creatinine 1.06 Random Glucose 95 Total Protein 7.6 Albumin 3.6 Calcium Level 8.7 Phosphorus Level 1.6 Magnesium Level 1.3 Alkaline Phosphatase 95 Aspartate Amino Transf (AST/SGOT) 88 Alanine Aminotransferase (ALT/SGPT) 38 Total Bilirubin 4.1 Sodium Level 150 Potassium Level 2.9 Chloride Level 107 Carbon Dioxide Level 30.7 Anion Gap 12 Estimat Glomerular Filtration Rate 71 Date/Time Source Procedure Growth Status 07/03/17 17:37 Blood Peripheral Aerobic Blood Culture Pending Received 07/03/17 17:37 Blood Peripheral Anaerobic Blood Culture Pending Received 07/03/17 16:00 Nasal Washing Influenza Types A,B Antigen (BERNARDO) - Final NEGATIVE FOR FLU A AND B ANTIGEN.... Complete Result Diagram: 07/04/17 0635 07/04/[address] reviewed. Assessment and Plan Assessment and Plan 61 year old male, inflammatory upper airway process with elevated WBC. Responding to IV steroids and antibiotics. Would continue IV meds at least until tomorrow. Would advance diet. Consider GI eval if he is not yet able to swallow. Larynx is clear. As he improved should be able to discharge on antibiotics and a short steroid taper. ENT prn. Heladio Naylor MD Jul 04, 2017 10:24
[2017-07-04] MEDS: cefTRIAXone INJ 2,000 MG in SODIUM CHLORIDE 0.9% INJ 100 ML IV SCH (14:11)
--- NOTE | 2017-07-04 15:13 | HHI.PR ---
cc: Zane Ramos MD Subjective Subjective Notes Resting in bed No complaints Breathing comfortable Objective Vitals/I&O Vital Signs Date Time Temp Pulse Resp B/P (MAP) Pulse Ox O2 Delivery O2 Flow Rate FiO2 07/04/17 12:00 93 07/04/17 12:00 97.5 22 135/79 (97) 95 07/04/17 08:57 Aerosol Mask 6.00 28 Labs Laboratory Tests Test 07/03/17 17:37 07/04/17 06:35 07/04/17 09:05 07/04/17 12:24 Prothrombin Time 12.9 Prothromb Time International Ratio 1.3 White Blood Count 10.1 Red Blood Count 4.81 Hemoglobin 14.3 Hematocrit 42.6 Mean Corpuscular Volume 88.5 Mean Corpuscular Hemoglobin 29.7 Mean Corpuscular Hemoglobin Concent 33.5 Red Cell Distribution Width 15.9 Platelet Count 67 Mean Platelet Volume 8.0 Neutrophils (%) (Auto) 91.2 Lymphocytes (%) (Auto) 3.7 Monocytes (%) (Auto) 5.0 Eosinophils (%) (Auto) 0.0 Basophils (%) (Auto) 0.1 Neutrophils # (Auto) 9.2 Lymphocytes # (Auto) 0.4 Monocytes # (Auto) 0.5 Eosinophils # (Auto) 0.0 Basophils # (Auto) 0.0 CBC Comment AUTO DIFF Differential Total Cells Counted 100 Neutrophils % (Manual) 83 Band Neutrophils % 11 Lymphocytes % 3 Monocytes % 3 Neutrophils # (Manual) 9.5 Nucleated Red Blood Cells 1 Differential Comment FINAL DIFF MANUAL Platelet Estimate LOW Platelet Morphology Comment NORMAL Blood Urea Nitrogen 17 Creatinine 1.06 Random Glucose 95 Total Protein 7.6 Albumin 3.6 Calcium Level 8.7 Phosphorus Level 1.6 2.0 Magnesium Level 1.3 Alkaline Phosphatase 95 Aspartate Amino Transf (AST/SGOT) 88 Alanine Aminotransferase (ALT/SGPT) 38 Total Bilirubin 4.1 Sodium Level 150 Potassium Level 2.9 Chloride Level 107 Carbon Dioxide Level 30.7 Anion Gap 12 Estimat Glomerular Filtration Rate 71 Nasal Screen MRSA (PCR) MRSA DETECTED Date/Time Source Procedure Growth Status 07/03/17 17:37 Blood Peripheral Aerobic Blood Culture - Preliminary NO GROWTH IN 1 DAY Resulted 07/03/17 17:37 Blood Peripheral Anaerobic Blood Culture - Preliminary NO GROWTH IN 1 DAY Resulted 07/03/17 16:00 Nasal Washing Influenza Types A,B Antigen (BERNARDO) - Final NEGATIVE FOR FLU A AND B ANTIGEN.... Complete Radiology Last [address] 07/03/17 0000 Signed Impressions: Service Date/Time: Monday, July 03, 2017 10:37 - CONCLUSION: Abnormal significant prevertebral soft tissue thickening measuring up to 2.9 cm, greatest in thickness in the subglottic region, but extending up to the hypopharynx. The soft tissue thickening causes narrowing of the hypopharyngeal airway. The This is a new finding when compared to prior MRI in May 2016. Meir Singh MD Chest CT 07/03/17 0000 Signed Impressions: Service Date/Time: Monday, July 03, 2017 10:37 - CONCLUSION: 1. Concentric thickening of the esophageal wall from superior mediastinum to GE junction suggests esophagitis. 2. No evidence of pneumomediastinum. 3. 5 mm nodular density in the lateral right midlung could represent focal thickening of the pleura or a solitary nodule. Recommend followup CT in 6 months. Meir Singh MD Cardiovascular: Regular Lungs: Clear Abdomen: Non-distended, Non-tender Extremities: No edema A/P Assessment and Plan 61 year old male with airway compromise; unknown etiology at this time -Airway stable -Diet as tolerated -Please call if surgical airway needed -Discussed with Cayla Branch/C[employer] Reporter ILENE Jul 04, 2017 15:12
[2017-07-04 23:12] LABS: MAGNESIUM 1.6 MG/DL (1.5-2.5); PHOSPHORUS 2.6 MG/DL (2.5-4.9)
[2017-07-04] MEDS: POTASSIUM CHLOR 20 MEQ PREMIX 100 ML IV PRN (23:30)
[2017-07-05] VITALS (20 sets, daily range): BP systolic 127–179; BP diastolic 60–101; PULSE 67–116; RESP 21–47; TEMP 98.1–99; O2SAT 88–95
[2017-07-05] MEDS: FAMOTIDINE 20 MG/2 ML VIAL IV PUSH SCH ×2 (01:48→12:23)
[2017-07-05] MEDS: CHLORHEXIDINE GLUCONATE 2 % 1 PACK (2 CLOTHS) TOP SCH (03:43)
[2017-07-05] MEDS: POTASSIUM CHLOR 20 MEQ PREMIX 100 ML IV PRN ×3 (04:35→22:35)
[2017-07-05 04:42] LABS: HEMOGLOBIN 13.9 GM/DL (13.0-17.0); MEAN CELL VOLUME 88.9 FL (80.0-100.0); MEAN CORPUSCULAR HEMOGLOBIN 28.8 PG (27.0-34.0); MEAN CORPUSCULAR HGB CONC 32.4 % (32.0-36.0); MEAN PLATELET VOLUME 8.1 FL (7.0-11.0); PLATELET COUNT 84 TH/MM3 (150-450); RED BLOOD COUNT 4.83 MIL/MM3 (4.50-5.90); RED CELL DISTRIBUTION WIDTH 16.1 % (11.6-17.2); WHITE BLOOD COUNT 13.1 TH/MM3 (4.0-11.0)
[2017-07-05 05:10] LABS: BICARBONATE 31.3 MEQ/L (21.0-32.0); CALCIUM 8.5 MG/DL (8.5-10.1); CREATININE 1.1 MG/DL (0.60-1.30); MAGNESIUM 2.1 MG/DL (1.5-2.5); PHOSPHORUS 3.4 MG/DL (2.5-4.9)
--- NOTE | 2017-07-05 05:58 | RADRPT ---
EXAM DATE/TIME: 07/05/2017 04:25 [facility] COMPARISON: CHEST SINGLE AP, July 04, 2017, 3:49. INDICATIONS : Shortness of breath, possible pulmonary disease. MEDICAL HISTORY : None. SURGICAL HISTORY : None. ENCOUNTER: Subsequent ACUITY: 4 - 6 days PAIN SCORE: 0/10 LOCATION: Bilateral chest FINDINGS: A single view of the chest demonstrates the lungs to be symmetrically aerated without evidence of mas s, infiltrate or effusion. The cardiomediastinal contours are unremarkable. Osseous structures are intact. CONCLUSION: No acute disease. Tobias Juarez MD on July 05, 2017 at 5:57 Board Certified Radiologist. This report was verified electronically.
[2017-07-05] MEDS: DEXAMETHASONE SOD PHOS 4 MG/ML VIAL IV PUSH SCH (06:02)
[2017-07-05] MEDS ORDERED: POTASSIUM CHLORIDE 20 MEQ PWD PACKET PO ONE (08:15)
[2017-07-05] MEDS: SODIUM CHLORIDE 0.9% FLUSH 10 ML FLUSH IV FLUSH SCH ×3 (08:17→21:00)
[2017-07-05] MEDS: DOCUSATE SODIUM 50 MG/SENNA 8.6 MG TAB PO SCH ×3 (08:17→21:00)
[2017-07-05] MEDS: ENALAPRIL MALEATE 10 MG TAB PO SCH (08:17)
[2017-07-05] MEDS: DEXT 5%-NACL 0.45% 1000 ML INJ 1,000 ML IV SCH (08:18)
[2017-07-05] MEDS ORDERED: LORazepam 2 MG/ML VIAL IV PUSH ONE (10:45)
[2017-07-05] MEDS ORDERED: LORazepam 2 MG TAB PO PRN (11:30)
[2017-07-05] MEDS ORDERED: LORazepam 1 MG TAB PO PRN (11:30)
[2017-07-05] MEDS ORDERED: SODIUM CHLORIDE 0.9% FLUSH 10 ML FLUSH IV FLUSH PRN (11:30)
[2017-07-05] MEDS ORDERED: LORazepam 2 MG/ML VIAL IM ONE (11:30)
[2017-07-05] MEDS ORDERED: HALOPERIDOL LACTATE 5 MG/ML AMP IM ONE (11:30)
[2017-07-05] MEDS ORDERED: LORazepam 2 MG/ML VIAL IV PUSH PRN ×3 (11:30)
[2017-07-05] MEDS ORDERED: FLUMAZENIL 0.5 MG/5 ML VIAL IV PUSH PRN (11:30)
[2017-07-05] MEDS: LORazepam 2 MG/ML VIAL IV PUSH PRN ×3 (12:23→16:47)
[2017-07-05] MEDS: cefTRIAXone INJ 2,000 MG in SODIUM CHLORIDE 0.9% INJ 100 ML IV SCH (12:25)
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
[2017-07-05] MEDS: METOPROLOL TARTRATE 5 MG/5 ML VIAL IV PUSH PRN (18:31)
[2017-07-05] MEDS: HALOPERIDOL LACTATE 5 MG/ML AMP IM PRN (22:35)
[2017-07-06] VITALS (21 sets, daily range): BP systolic 119–199; BP diastolic 65–108; PULSE 60–101; RESP 13–31; TEMP 97–98.6; O2SAT 95–99
[2017-07-06] MEDS: METOPROLOL TARTRATE 5 MG/5 ML VIAL IV PUSH PRN (01:08)
[2017-07-06] MEDS: FAMOTIDINE 20 MG/2 ML VIAL IV PUSH SCH ×2 (02:38→14:32)
[2017-07-06] MEDS: CHLORHEXIDINE GLUCONATE 2 % 1 PACK (2 CLOTHS) TOP SCH (04:00)
[2017-07-06] MEDS: HALOPERIDOL LACTATE 5 MG/ML AMP IM PRN (04:37)
[2017-07-06 07:29] LABS: ALBUMIN 3.4 GM/DL (3.4-5.0); AST (GOT) 67 U/L (15-37); BICARBONATE 32.8 MEQ/L (21.0-32.0); BLOOD UREA NITROGEN 11 MG/DL (7-18); CALCIUM 8.7 MG/DL (8.5-10.1); CHLORIDE 103 MEQ/L (98-107); CREATININE 0.76 MG/DL (0.60-1.30); GLOMERULAR FILTRATION RATE 105 ML/MIN (>89); GLUCOSE,RANDOM 97 MG/DL (74-106); SODIUM (NA) 143 MEQ/L (136-145)
[2017-07-06 07:31] LABS: AUTOMATED NEUTROPHIL # 4.9 TH/MM3 (1.8-7.7); BASOPHIL % 0.1 % (0.0-2.0); HEMATOCRIT 41.8 % (39.0-51.0); HEMOGLOBIN 13.6 GM/DL (13.0-17.0); LYMPHOCYTE # 0.6 TH/MM3 (1.0-4.8); MEAN CELL VOLUME 88.7 FL (80.0-100.0); MEAN CORPUSCULAR HEMOGLOBIN 28.9 PG (27.0-34.0); MEAN CORPUSCULAR HGB CONC 32.6 % (32.0-36.0); MEAN PLATELET VOLUME 8.6 FL (7.0-11.0); MONO % 8.8 % (0.0-8.0); MONOCYTE # 0.5 TH/MM3 (0-0.9); NEUT % 81.1 % (16.0-70.0); PLATELET COUNT 71 TH/MM3 (150-450); RED BLOOD COUNT 4.71 MIL/MM3 (4.50-5.90); RED CELL DISTRIBUTION WIDTH 15.5 % (11.6-17.2); WHITE BLOOD COUNT 6.1 TH/MM3 (4.0-11.0)
[2017-07-06 07:37] LABS: ALKALINE PHOSPHATASE 78 U/L (45-117); ALT (GPT) 35 U/L (12-78); TOTAL BILIRUBIN ADULT 1.7 MG/DL (0.2-1.0); TOTAL PROTEIN 7.3 GM/DL (6.4-8.2)
[2017-07-06] MEDS: DEXT 5%-NACL 0.45% 1000 ML INJ 1,000 ML IV SCH (07:55)
[2017-07-06] MEDS: DOCUSATE SODIUM 50 MG/SENNA 8.6 MG TAB PO SCH ×2 (09:01→20:22)
[2017-07-06] MEDS: ENALAPRIL MALEATE 10 MG TAB PO SCH (09:01)
[2017-07-06] MEDS: SODIUM CHLORIDE 0.9% FLUSH 10 ML FLUSH IV FLUSH SCH ×4 (09:01→20:22)
[2017-07-06] MEDS: POTASSIUM CHLOR 20 MEQ PREMIX 100 ML IV SCH ×2 (09:45→12:35)
[2017-07-06] MEDS ORDERED: ENALAPRILAT 1.25 MG/ML VIAL IV PUSH PRN (10:00)
--- NOTE | 2017-07-06 11:44 | PD.PSY.CON ---
Provisional Diagnosis Admission Date Jul 03, 2017 at 12:44 [place] I. Alcohol use disorder, delirium due to alcohol withdrawal [place] II. Deferred [place] III. 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 He says that whenever he tries to swallow, he chokes and it comes back up his nose. The patient was noted to have dysphagia, and hoarseness. The patient's medical history is significant for hypertension the patient has not been compliant with his antihypertensive medication stating he ran out of bed a while ago, 2 weeks, type of medication unknown. Laboratory and imaging studies were performed, CT neck revealed significant narrowing of the infraglottic airway thickening extending from the left lateral pharyngeal wall bilateral to the level of the base of epiglottis. CT chest showed esophagitis emanating from the mediastinum to the GE junction. In the ED the patient received Decadron 10 mg 1 dose, one racemic epi nebulizer treatment. Patient was consulted to psychiatry due to new onset of agitation, psychosis. As per nurse in charge, the patient last night was very aggressive, he barricaded himself in the bathroom, he was very disorganized, needed ETO's, Haldol 5 mg and Ativan 2 mg IV in order to calm him down. Today on psychiatric evaluation, the patient is found sleeping, but easily arousable. The patient once awake, at the beginning of the be confused, but with redirection the patient became more aware and engageable in a conversation. He reports feeling much better today, he was restrained in 4 points, but I was able to loose on of his hands and he was quite. The patient is now fully oriented 3, he reports being in a good mood, denies depressive symptoms, denies anxiety, denies suicidal and homicidal ideation, he denies visual and auditory hallucinations. No agitation, no aggressive behavior present, the patient is logical, coherent and relevant. He reports drinking alcohol 3-4 times per week, usually 8-10 beers, reports previous withdrawal symptoms. At this time the patient doesn't present tremors, no sweating, he does have some autonomic instability. Review of Systems Constitutional: DENIES: Diaphoretic episodes, Fatigue, Fever, Weight gain, Weight loss, Chills, Dizziness, Change in appetite, Night Sweats Endocrine: DENIES: Heat/cold intolerance, Polydipsia, Polyuria, Polyphagia Eyes: DENIES: Blurred vision, Diplopia, Eye inflammation, Eye pain, Vision loss , Photosensitivity, Double Vision Ears, nose, mouth, throat: DENIES: Tinnitus, Hearing loss, Vertigo, Nasal discharge, Oral lesions, Throat pain, Hoarseness, Ear Pain, Running Nose, Epistaxis, Sinus Pain, Toothache, Odynophagia Respiratory: DENIES: Apneas, Cough, Snoring, Wheezing, Hemoptysis, Sputum production, Shortness of breath Cardiovascular: DENIES: Chest pain, Palpitations, Syncope, Dyspnea on Exertion , PND, Lower Extremity Edema, Orthopnea, Claudication Gastrointestinal: DENIES: Abdominal pain, Black stools, Bloody stools, Constipation, Diarrhea, Nausea, Vomiting, Difficulty Swallowing, Anorexia Genitourinary: DENIES: Sexual dysfunction, Urinary frequency, Urinary incontinence, Urgency, Hematuria, Dysuria, Nocturia, Penile Discharge, Testicular Pain, Testicular Swelling Musculoskeletal: DENIES: Joint pain, Muscle aches, Stiffness, Joint Swelling, Back pain, Neck pain Integumentary: DENIES: Abnormal pigmentation, Nail changes, Pruritus, Rash Hematologic/lymphatic: DENIES: Bruising, Lymphadenopathy Immunologic/allergic: DENIES: Eczema, Urticaria Neurologic: DENIES: Abnormal gait, Headache, Localized weakness, Paresthesias, Seizures, Speech Problems, Tremor, Poor Balance Psychiatric: DENIES: Anxiety, Confusion, Mood changes, Depression, Hallucinations, Agitation, Suicidal Ideation, Homicidal Ideation, Delusions Past Family Social History Coded Allergies: *MDRO Multi-Drug Resistant Organism (Verified Adverse Reaction, Unknown, MRSA, 07/03/17) MRSA (blood & urine) - 06/30/10 Active Scripts Amlodipine (Amlodipine) 10 Mg Tab, 10 MG PO DAILY for Blood Pressure Management , #90 TAB 1 Refill Prov:Kristin Donahue MD 07/18/16 Reported Medications Boaz-3/Dha/Epa/Fish Oil (Fish Oil 1,000 mg Softgel) 1,000 Mg Capsule, 1 CAP PO DAILY 12/20/16 Discontinued Reported Medications Warfarin (Warfarin) 10 Mg Tab, 10 MG PO DAILY for Blood Clot Prevention, #30 TAB 0 Refills 12/20/16 Enoxaparin Inj (Enoxaparin Inj) 150 Mg/Ml Syr, 150 MG SQ DAILY for Blood Clot Prevention, SYRINGE 0 Refills 12/20/16 Tramadol (Tramadol) 50 Mg Tab, 50 MG PO BID Y for PAIN, TAB 0 Refills 12/20/16 Discontinued Scripts Sulfamethoxazole-Trimethoprim (Sulfamethoxazole-Trimethoprim) 800-160 Mg Tab, 1 TAB PO BID for Infection, #20 TAB 0 Refills Prov:Kristin Donahue MD 12/22/16 Sodium Hypochlorite Topical (Dakins Solution Quarter Strength Topical) 0.125% Soln, 473 ML TOPICAL DAILY for Infection, #2 ML 6 Refills Prov:Kristin Donahue MD 12/20/16 Hydrocodone-Acetaminophen (Hydrocodone-Acetaminophen) 5-325 mg Tab, 1 TAB PO Q6H Y for PAIN, #120 TAB 0 Refills Prov:Kristin Donahue MD 07/18/16 Current Medications Medications (Trade) Dose Ordered Sig/Case Route Start Time Stop Time Status Last Admin (NS Flush) 2 ml UNSCH PRN IV FLUSH 07/03/17 13:45 (NS Flush) 2 ml BID IV FLUSH 07/03/17 21:00 07/06/17 09:01 (Pepcid Inj) 10 mg Q12H IV PUSH 07/03/17 14:00 07/06/17 02:38 (Zofran Inj) 4 mg Q6H PRN IV PUSH 07/03/17 13:45 (Heparin Inj) 5,000 units Q12H SQ 07/03/17 14:00 Future Hold 07/03/17 14:00 Miscellaneous Information 1 [id number] XX 07/03/17 13:45 07/03/17 13:45 (Chlorhexidine 2% Cloth) 3 pack Taper DAILY@04 TOP 07/04/17 04:00 06/30/18 03:59 07/05/17 03:43 (Chlorhexidine 2% Cloth) 3 pack UNSCH PRN TOP 07/03/17 13:45 (Adore-Colace) 1 tab BID PO 07/03/17 21:00 07/06/17 09:01 (Milk Of Magnesia Liq) 30 ml Q12H PRN PO 07/03/17 13:45 (Senokot) 17.2 mg Q12H PRN PO 07/03/17 13:45 (Dulcolax Supp) 10 mg DAILY PRN RECTAL 07/03/17 13:45 (Lactulose Liq) 30 ml DAILY PRN PO 07/03/17 13:45 (Racepinephrine 2.25% Neb) 0.5 ml Q3HR NEB PRN NEB 07/03/17 13:45 07/03/17 15:08 Ceftriaxone Sodium 2000 mg/ Sodium Chloride 100 ml @ 200 mls/hr Q24H IV 07/03/17 14:00 07/05/17 12:25 (Benadryl Inj) 25 mg Q6H PRN IM 07/03/17 14:00 (Lopressor Inj) 2.5 mg Q6H PRN IV PUSH 07/03/17 14:00 07/06/17 01:08 (Vasotec) 10 mg DAILY PO 07/04/17 09:00 07/06/17 09:01 Dextrose/Sodium Chloride 1,000 ml @ 84 mls/hr [id number] IV 07/04/17 08:15 07/06/17 07:55 Potassium Chloride 100 ml @ 50 mls/hr Q2H PRN IV 07/04/17 08:45 Potassium Chloride 100 ml @ 50 mls/hr Q2H PRN IV 07/04/17 08:45 07/05/17 22:35 (K-Lyte Cl Eff) 50 meq UNSCH PRN PO 07/04/17 08:45 Potassium Chloride 100 ml @ 25 mls/hr UNSCH PRN IV 07/04/17 08:45 Potassium Chloride 100 ml @ 50 mls/hr Q2H PRN IV 07/04/17 08:45 Magnesium Sulfate 4 gm/Sodium Chloride 100 ml @ 50 mls/hr UNSCH PRN IV 07/04/17 08:45 (Mag-Ox) 800 mg UNSCH PRN PO 07/04/17 08:45 Magnesium Sulfate 2 gm/Sodium Chloride 100 ml @ 50 mls/hr UNSCH PRN IV 07/04/17 08:45 07/04/17 23:40 (K-Phos) 2,000 mg Q4H PRN PO 07/04/17 08:45 Sodium Phosphate 30 mmol/Sodium Chloride 250 ml @ 42 mls/hr UNSCH PRN IV 07/04/17 08:45 (K-Phos) 2,000 mg UNSCH PRN PO/TUBE 07/04/17 08:45 Potassium Phosphate 30 mmol/ Sodium Chloride 260 ml @ 42 mls/hr UNSCH PRN IV 07/04/17 08:45 07/04/17 09:51 (NS Flush) 2 ml UNSCH PRN IV FLUSH 07/05/17 11:30 (NS Flush) 2 ml BID IV FLUSH 07/05/17 21:00 07/06/17 09:01 (Romazicon Inj) 0.2 mg Q1M PRN IV PUSH 07/05/17 11:30 (Ativan) 1 mg Q4H PRN PO 07/05/17 11:30 (Ativan Inj) 1 mg Q4H PRN IV PUSH 07/05/17 11:30 (Ativan) 2 mg Q2H PRN PO 07/05/17 11:30 (Ativan Inj) 2 mg Q2H PRN IV PUSH 07/05/17 11:30 07/05/17 16:47 (Ativan Inj) 2 mg Q1H PRN IV PUSH 07/05/17 11:30 (Ativan Inj) 2 mg Q15M PRN IV PUSH 07/05/17 11:30 07/06/17 02:31 (Haldol Inj) 2 mg Q15M PRN IM 07/05/17 20:00 07/06/17 04:37 (Vasotec Inj) 1.25 mg Q6H PRN IV PUSH 07/06/17 10:00 Potassium Chloride 100 ml @ 50 mls/hr Q2H IV 07/06/17 10:00 07/06/17 13:59 07/06/17 09:45 Family Psych History The patient has a brother with bipolar disorder Social History Patient was born in [facility], he lives in [place], his single, has 2 kids, 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 2) Verbal communication Physical Exam Vital Signs Vital Signs Date Time Temp Pulse Resp B/P (MAP) Pulse Ox O2 Delivery O2 Flow Rate FiO2 07/06/17 08:46 98 Nasal Cannula 4.00 07/06/17 07:00 28 07/06/17 06:00 77 07/06/17 04:00 98.6 19 199/88 (125) I/O 07/06/17 07/06/17 07/07/17 08:00 16:00 00:00 Intake Total 200 ml 1537 ml Output Total 1001 ml Balance -801 ml 1537 ml Lab Results Test 07/06/17 06:25 White Blood Count 6.1 TH/MM3 Red Blood Count 4.71 MIL/MM3 Hemoglobin 13.6 GM/DL Hematocrit 41.8 % Mean Corpuscular Volume 88.7 FL Mean Corpuscular Hemoglobin 28.9 PG Mean Corpuscular Hemoglobin Concent 32.6 % Red Cell Distribution Width 15.5 % Platelet Count 71 TH/MM3 Mean Platelet Volume 8.6 FL Neutrophils (%) (Auto) 81.1 % Lymphocytes (%) (Auto) 10.0 % Monocytes (%) (Auto) 8.8 % Eosinophils (%) (Auto) 0.0 % Basophils (%) (Auto) 0.1 % Neutrophils # (Auto) 4.9 TH/MM3 Lymphocytes # (Auto) 0.6 TH/MM3 Monocytes # (Auto) 0.5 TH/MM3 Eosinophils # (Auto) 0.0 TH/MM3 Basophils # (Auto) 0.0 TH/MM3 CBC Comment AUTO DIFF Differential Comment AUTO DIFF CONFIRMED Platelet Estimate LOW Platelet Morphology Comment NORMAL Blood Urea Nitrogen 11 MG/DL Creatinine 0.76 MG/DL Random Glucose 97 MG/DL Total Protein 7.3 GM/DL Albumin 3.4 GM/DL Calcium Level 8.7 MG/DL Alkaline Phosphatase 78 U/L Aspartate Amino Transf (AST/SGOT) 67 U/L Alanine Aminotransferase (ALT/SGPT) 35 U/L Total Bilirubin 1.7 MG/DL Sodium Level 143 MEQ/L Potassium Level 3.0 MEQ/L Chloride Level 103 MEQ/L Carbon Dioxide Level 32.8 MEQ/L Anion Gap 7 MEQ/L Estimat Glomerular Filtration Rate 105 ML/MIN Date/Time Source Procedure Growth Status 07/03/17 17:37 Blood Peripheral Aerobic Blood Culture - Preliminary NO GROWTH IN 3 DAYS Resulted 07/03/17 17:37 Blood Peripheral Anaerobic Blood Culture - Preliminary NO GROWTH IN 3 DAYS Resulted 07/03/17 16:00 Nasal Washing Influenza Types A,B Antigen (BERNARDO) - Final NEGATIVE FOR FLU A AND B ANTIGEN.... Complete Mental Status Examination Appearance: Appropriate Consciousness: Alert Orientation: x4 Motor Activity: Normal gait Speech: Unremarkable Language: Adequate Fund of Knowledge: Adequate Attention and Concentration: Adequate Memory: Unremarkable Mood: Appropriate Affect: Appropriate Thought Process & Associations: Intact Thought Content: Appropriate Hallucination Type: None Delusion Type: None Suicidal Ideation: No Suicidal Plan: No Suicidal Intention: No Homicidal Ideation: No Homicidal Plan: No Homicidal Intention: No Insight: Adequate Judgment: Adequate Assessment & Plan Problem List: (1) Delirium due to another medical condition ICD Codes: F05 - Delirium due to known physiological condition (2) Alcohol withdrawal delirium, acute, hyperactive ICD Codes: F10.231 - Alcohol dependence with withdrawal delirium Assessment & Plan: On psychiatric evaluation today the patient is found restrained in 4 points, he is is sleeping, but arousable. The patient has reportedly been very aggressive, agitated, disorganized and he needed Haldol 5 mg IM and Ativan 2 mg IM in order to calm him down. At the moment of my evaluation the patient is actually calm, cooperative, he is engageable in a conversation, logical, coherent and relevant, oriented 3, doesn't present any agitation or aggression. The patient does not have any previous psychiatric history. He doesn't have any history of suicidal attempts or aggressive behavior. He does report taking alcohol 3-4 times per day, 8-10 beers per day, having history of withdrawal in the past. Recent reported aggressive behavior and agitation seems to be the result of alcohol withdrawal. Continue CIWA protocol. Even though the patient is now calm and cooperative, he is in a high risk to become psychotic again. In case of behavioral dysregulation and agitation, Haldol 5 mg IM stat can be order. If QTc interval is major than 460 avoid psychotropics. Psychoeducation and motivation provided. He does not meet criteria for involuntary psychiatric admission at this moment. Assessment & Plan Estimated LOS: Marc Campoverde MD Jul 06, 2017 11:44
--- NOTE | 2017-07-06 12:08 | HHI.PR ---
Subjective Remarks Patient has improved with treatment which include cessation of steroids and start of CIWA protocol. Patient is more pleasant today and not exhibiting violence. No psychosis. Restraints have been removed and he is cooperative thus far. Objective Vital Signs Date Time Temp Pulse Resp B/P (MAP) Pulse Ox O2 Delivery O2 Flow Rate FiO2 07/06/17 08:46 98 Nasal Cannula 4.00 07/06/17 08:00 77 07/06/17 07:00 Nasal Cannula 4.00 28 07/06/17 06:00 77 07/06/17 04:00 60 07/06/17 04:00 98.6 60 19 199/88 (125) 07/06/17 02:45 96 Nasal Cannula 4.00 07/06/17 02:00 65 07/06/17 00:00 101 07/06/17 00:00 98.1 101 21 180/78 (112) 96 07/05/17 22:00 81 07/05/17 20:00 67 07/05/17 20:00 98.1 67 27 155/86 (109) 07/05/17 19:00 97 Nasal Cannula 4.00 07/05/17 18:00 67 07/05/17 16:00 98.5 77 22 163/82 (109) 94 07/05/17 16:00 98.5 77 22 163/82 (109) 94 07/05/17 16:00 77 07/05/17 15:00 75 21 161/87 (111) 93 07/05/17 14:01 79 21 156/74 (101) 07/05/17 14:00 82 07/05/17 14:00 82 26 07/05/17 13:00 77 25 144/78 (100) 07/05/17 12:35 151/73 (99) 89 I/O 07/05/17 07/05/17 07/05/17 07/06/17 07/06/17 07/06/17 07:00 15:00 23:00 07:00 15:00 23:00 Intake Total 440 ml 440 ml 200 ml 1537 ml Output Total 450 ml 475 ml 1001 ml Balance -10 ml -35 ml -801 ml 1537 ml Intake Oral 240 ml 240 ml 100 ml IV Total 200 ml 200 ml 100 ml 1537 ml Output Urine Total 450 ml 475 ml 1000 ml Stool Total 1 ml # Voids 3 # Bowel Movements 1 Result Diagram: 07/06/1762407/06/17624 Objective Remarks GENERAL: NAD, A&Ox1 HEAD: Normocephalic. NECK: Supple, trachea midline. No lymphadenopathy. EYES: No scleral icterus. No injection or drainage. CARDIOVASCULAR: Regular rate and rhythm without murmurs, gallops, or rubs. RESPIRATORY: Breath sounds equal bilaterally. No accessory muscle use. GASTROINTESTINAL: Abdomen soft, non-tender, nondistended. MUSCULOSKELETAL: No cyanosis, or edema. SKIN: Warm and dry. NEURO: No focal neurological deficitis. A/P Problem List: (1) Acute psychosis ICD Code: F23 - Brief psychotic disorder (2) Airway compromise ICD Code: J98.8 - Other specified respiratory disorders Status: Acute Assessment and Plan 61-year-old male admitted secondary to airway compromise now with acute psychosis Psychosis is improving. Likely etiology is delirium tremens. Continue CIWA protocol. Continue monitoring vital signs. Continue monitoring for recurrence. Restraints have been removed and patient is stable for transfer out of ICU today. Airway compromise Esophageal/pharynx edema Resolved Acute psychosis Delirium tremens versus steroid-induced psychosis versus underlying pathology Family reports a history of drinking, no reports of history of schizophrenia or other psychosis Steroids discontinued CIWA protocol placed Patient placed in restraints Mayen act placed Psychiatry consulted Hypertension Continue baseline treatment Follow blood pressures Adjust treatments as needed DVT prophylaxis ALANNAs Joseph Ng MD Jul 06, 2017 12:08
--- NOTE | 2017-07-06 12:11 | PD.WCN.NOT ---
Wound Consult Description: Received consult for wound management of L Clavicular area from Doctor Joseph Ng Communicated with: SERENA Trevino [facility] and call placed to Doctor Joseph Ng Recommendation: Please cleanse wound with normal saline only and apply martha thick coverage of Santyl with normal saline moistened 2 x2 to gauze pad loosely packed in wound bed. Cover with dry dry 2 x2 and then cover with dry 4x4 gauze pads secured with paper tape. change dressing daily. Please apply skin prep to intact skin before applying adhesive to skin. OR IF drainage becomes heavier may apply Santyl martha thick coverage to wound bed and cover with Maxorb II packed loosely in wound bed then cover with dry 4x4 gauze pads secured with paper tape and change daily. Please vocera wound care nurse for wound deterioration. Additional Information: Patient seen on for evaluation of wound management of of L clavicular area. Spoke with patient regarding wound history. Patient has had wound for a long time and was the result of skin cancer removal.Removed dressings of Optilock, calcium alginate and oil emulsion gauze in wound bed to reveal open wound to L clavicular area. Wound presents with an oval shape, and measures 5.5cm x 3cm x 0.8cm. Periwound presents with thickened scar tissue from 7 to 11 o'clock. Epibole is also noted from 6 to 7 o'clock. Wound bed presents with ~30 % exposed bone, ~30% red non granulation tissue, ~20% adipose tissue and ~20% yellow adherent slough. Wound was cleansed with normal saline and gauze pad. Wound has no active drainage and wound bed appears moist. Spoke with SERENA Franklin yesterday afternoon and she reported moderate to heavy drainage. Wound has no odor. Applied oil emulsion gauze over exposed bone and adipose tissue and space was filled in with Maxorb II, covered wound with dry 4x4 gauze pads, secured with paper tape. Skin prep was applied before tape was applied to skin. Recommendations are noted above. Bernice Harris [facility] Jul 06, 2017 12:11
[2017-07-06] MEDS: cefTRIAXone INJ 2,000 MG in SODIUM CHLORIDE 0.9% INJ 100 ML IV SCH (14:32)
[2017-07-07] VITALS (7 sets, daily range): BP systolic 137–182; BP diastolic 75–93; PULSE 80–98; RESP 17–20; TEMP 97.6–99.4; O2SAT 94–99
[2017-07-07] MEDS: FAMOTIDINE 20 MG/2 ML VIAL IV PUSH SCH ×2 (00:46→14:31)
[2017-07-07] MEDS: DEXT 5%-NACL 0.45% 1000 ML INJ 1,000 ML IV SCH ×2 (00:46→14:32)
[2017-07-07] MEDS: CHLORHEXIDINE GLUCONATE 2 % 1 PACK (2 CLOTHS) TOP SCH (04:00)
[2017-07-07] MEDS: ENALAPRIL MALEATE 10 MG TAB PO SCH (09:23)
[2017-07-07] MEDS: DOCUSATE SODIUM 50 MG/SENNA 8.6 MG TAB PO SCH ×2 (09:23→21:13)
[2017-07-07] MEDS: COLLAGENASE OINT 30 GM TUBE TOPICAL SCH (09:24)
[2017-07-07] MEDS: SODIUM CHLORIDE 0.9% FLUSH 10 ML FLUSH IV FLUSH SCH ×2 (09:24→21:00)
--- NOTE | 2017-07-07 09:45 | HHI.PR ---
Subjective Remarks With pain with swallowing, some wheezing. His breathing well on 2 L by nasal cannula. No fever or chills overnight. No nausea vomiting no diarrhea or constipation. He is not coughing. Objective Vitals Vital Signs Date Time Temp Pulse Resp B/P (MAP) Pulse Ox O2 Delivery O2 Flow Rate FiO2 07/07/17 08:25 98.5 80 18 151/93 (112) 99 07/07/17 04:07 97.6 82 17 147/83 (104) 97 07/07/17 00:00 97.8 80 20 155/81 (105) 99 07/06/17 20:00 97.9 79 13 121/65 (83) 96 07/06/17 20:00 79 07/06/17 19:25 95 Nasal Cannula 4.00 07/06/17 19:00 91 Nasal Cannula 4.00 07/06/17 18:00 72 07/06/17 17:00 77 20 135/69 (91) 97 07/06/17 16:00 97.6 86 28 119/66 (83) 96 07/06/17 16:00 86 07/06/17 15:00 85 27 126/66 (86) 96 07/06/17 14:26 78 07/06/17 14:00 76 22 135/67 (89) 98 07/06/17 13:00 75 23 119/65 (83) 96 07/06/17 12:00 84 07/06/17 12:00 97.0 84 28 154/108 (123) 97 07/06/17 11:00 74 22 157/78 (104) 98 07/06/17 10:00 73 07/06/17 10:00 73 24 156/91 (112) 99 I/O 07/06/17 07/06/17 07/06/17 07/07/17 07/07/17 07/07/17 07:00 15:00 23:00 07:00 15:00 23:00 Intake Total 200 ml 1537 ml 740 ml 240 ml Output Total 1001 ml 750 ml 400 ml Balance -801 ml 1537 ml -10 ml -160 ml Intake Oral 100 ml 740 ml 240 ml IV Total 100 ml 1537 ml Output Urine Total 1000 ml 750 ml 400 ml Stool Total 1 ml Result Diagram: 07/06/1762407/06/17624 Imaging Last Impressions Chest X-Ray 07/05/17 0600 Signed Impressions: Service Date/Time: June 04:25 - CONCLUSION: No acute disease. Tobias Juarez MD Neck CT 07/03/17 0000 Signed Impressions: Service Date/Time: Monday, July 03, 2017 10:37 - CONCLUSION: Abnormal significant prevertebral soft tissue thickening measuring up to 2.9 cm, greatest in thickness in the subglottic region, but extending up to the hypopharynx. The soft tissue thickening causes narrowing of the hypopharyngeal airway. The This is a new finding when compared to prior MRI in May 2016. Meir Singh MD Chest CT 07/03/17 0000 Signed Impressions: Service Date/Time: Monday, July 03, 2017 10:37 - CONCLUSION: 1. Concentric thickening of the esophageal wall from superior mediastinum to GE junction suggests esophagitis. 2. No evidence of pneumomediastinum. 3. 5 mm nodular density in the lateral right midlung could represent focal thickening of the pleura or a solitary nodule. Recommend followup CT in 6 months. Meir Singh MD Objective Remarks GENERAL: Pleasant 61-year-old male, appears in NAD, A&Ox3 HEAD: Normocephalic. NECK: Supple, trachea midline. No lymphadenopathy. EYES: No scleral icterus. No injection or drainage. CARDIOVASCULAR: Regular rate and rhythm without murmurs, gallops, or rubs. RESPIRATORY: Breath sounds equal bilaterally. No accessory muscle use. No wheezing. GASTROINTESTINAL: Abdomen soft, non-tender, nondistended. MUSCULOSKELETAL: No cyanosis, or edema. SKIN: Warm and dry. NEURO: No focal neurological deficits. A/P Assessment and Plan 61-year-old male admitted secondary to airway compromise and also noted with acute psychosis Psychosis is improving. Likely etiology is delirium tremens. Continue CIWA protocol. Continue monitoring vital signs. Continue monitoring for recurrence. Restraints have been removed and patient is stable for transferred out of ICU. Patient still complains of dysphasia seen by Dr. Naylor ENT doctor recommends antibiotics and taper steroids. Also recommends GI consult. GI was consulted for further evaluation of dysphagia Airway compromise. Resolved Esophageal/pharynx edema. Hoarseness. Cleared by ENT for discharge to follow up as needed as outpatient. Dysphagia/odynophagia consult GI also Acute psychosis Delirium tremens versus steroid-induced psychosis versus underlying pathology Family reports a history of drinking, no reports of history of schizophrenia or other psychosis Steroids discontinued CIWA protocol placed Patient placed in restraints Mayen act placed Psychiatry consulted Hypertension Continue baseline treatment Follow blood pressures Adjust treatments as needed DVT prophylaxis SCDs Carmella Garza MD Jul 07, 2017 09:45
[2017-07-07 11:03] LABS: AUTOMATED NEUTROPHIL # 3.2 TH/MM3 (1.8-7.7); BASOPHIL % 0.1 % (0.0-2.0); EOSINOPHIL % 0.8 % (0.0-4.0); HEMOGLOBIN 13.3 GM/DL (13.0-17.0); LYMPH % 13.5 % (9.0-44.0); LYMPHOCYTE # 0.6 TH/MM3 (1.0-4.8); MEAN CELL VOLUME 88.1 FL (80.0-100.0); MEAN CORPUSCULAR HEMOGLOBIN 29.2 PG (27.0-34.0); MEAN CORPUSCULAR HGB CONC 33.2 % (32.0-36.0); MEAN PLATELET VOLUME 8.5 FL (7.0-11.0); MONOCYTE # 0.7 TH/MM3 (0-0.9); NEUT % 70.6 % (16.0-70.0); PLATELET COUNT 65 TH/MM3 (150-450); RED BLOOD COUNT 4.54 MIL/MM3 (4.50-5.90); RED CELL DISTRIBUTION WIDTH 15.1 % (11.6-17.2); WHITE BLOOD COUNT 4.5 TH/MM3 (4.0-11.0)
[2017-07-07 11:33] LABS: ALBUMIN 2.8 GM/DL (3.4-5.0); ALKALINE PHOSPHATASE 70 U/L (45-117); ALT (GPT) 99 U/L (12-78); AST (GOT) 183 U/L (15-37); BICARBONATE 27.9 MEQ/L (21.0-32.0); BLOOD UREA NITROGEN 9 MG/DL (7-18); CALCIUM 7.9 MG/DL (8.5-10.1); CHLORIDE 104 MEQ/L (98-107); GLOMERULAR FILTRATION RATE 115 ML/MIN (>89); GLUCOSE,RANDOM 101 MG/DL (74-106); SODIUM (NA) 140 MEQ/L (136-145); TOTAL BILIRUBIN ADULT 1.6 MG/DL (0.2-1.0); TOTAL PROTEIN 6.3 GM/DL (6.4-8.2)
[2017-07-07] MEDS ORDERED: MAGNESIUM OXIDE 400 MG TAB PO ONE (13:00)
[2017-07-07] MEDS ORDERED: POTASSIUM CHLORIDE 10 MEQ CONTROLLED RELEASE TAB PO ONE (13:00)
[2017-07-07] MEDS: cefTRIAXone INJ 2,000 MG in SODIUM CHLORIDE 0.9% INJ 100 ML IV SCH (14:32)
[2017-07-07] MEDS ORDERED: POTASSIUM BICARBONATE 25 MEQ EFFERVESCENT TAB PO ONE (15:00)
--- NOTE | 2017-07-07 15:24 | PD.CONS ---
HPI History of Present Illness This is a 61 year old obese male was was in his usual state of health until his admission on 07/03/17. Patient had acute onset of nausea and vomiting while eating complicated with dysphasia, no known episodes before. Started having symptoms of dysphasia and hoarseness, was evaluated per ENT who felt that he would benefit from a GI consult. Currently patient continues to have hoarseness but denies any nausea or vomiting, diarrhea, or constipation. Was able to eat yogurt this morning without any dysphagia. Initially he was monitored in the intensive care setting, but is now stable and his private medical room. Patient was seen by general surgery during his acute intensive care phase but is now stable. He is also evaluated per psychology for delirium possible alcohol withdrawal with delirium. (Debi Duff) PFSH Past Medical History Basal cell cancer left chest Kidney stone Previous EtOH until 1 year ago Left hip fracture Past Surgical History Left hip repair No abdominal surgeries No previous endoscopy or colonoscopy (Debi Duff) Coded Allergies: *MDRO Multi-Drug Resistant Organism (Verified Adverse Reaction, Unknown, MRSA, 07/03/17) MRSA (blood & urine) - 06/30/10 Medications Administered Medications Medications (Trade) Dose Ordered Sig/Case Route PRN Reason Start Time Stop Time Status Last Admin Dose Admin Famotidine (Pepcid Inj) 10 mg Q12H IV PUSH 07/03/17 14:00 07/07/17 14:31 Heparin Sodium (Porcine) (Heparin Inj) 5,000 units Q12H SQ 07/03/17 14:00 Future Hold 07/03/17 14:00 Miscellaneous Information 1 [id number] XX 07/03/17 13:45 07/03/17 13:45 Chlorhexidine Gluconate (Chlorhexidine 2% Cloth) 3 pack Taper DAILY@04 TOP 07/04/17 04:00 06/30/18 03:59 07/05/17 03:43 Senna/Docusate Sodium (Adore-Colace) 1 tab BID PO 07/03/17 21:00 07/06/17 09:01 Racepinephrine (Racepinephrine 2.25% Neb) 0.5 ml Q3HR NEB PRN NEB STRIDOR 07/03/17 13:45 07/03/17 15:08 Ceftriaxone Sodium 2000 mg/ Sodium Chloride 100 ml @ 200 mls/hr Q24H IV 07/03/17 14:00 07/07/17 14:32 Metoprolol Tartrate (Lopressor Inj) 2.5 mg Q6H PRN IV PUSH SBP>160, DBP>90, HR >100 07/03/17 14:00 07/06/17 01:08 Enalapril Maleate (Vasotec) 10 mg DAILY PO 07/04/17 09:00 07/07/17 09:23 Dextrose/Sodium Chloride 1,000 ml @ 84 mls/hr [id number] IV 07/04/17 08:15 07/07/17 14:32 Sodium Chloride (NS Flush) 2 ml UNSCH PRN IV FLUSH FLUSH AFTER USING IV ACCESS 07/05/17 11:30 07/07/17 00:47 Sodium Chloride (NS Flush) 2 ml BID IV FLUSH 07/05/17 21:00 07/06/17 20:22 Lorazepam (Ativan Inj) 2 mg Q2H PRN IV PUSH CIWA 11-14 07/05/17 11:30 07/05/17 16:47 Lorazepam (Ativan Inj) 2 mg Q15M PRN IV PUSH CIWA > 20 07/05/17 11:30 07/06/17 02:31 Haloperidol Lactate (Haldol Inj) 2 mg Q15M PRN IM SEE LABEL COMMENTS 07/05/17 20:00 07/06/17 04:37 Family History Mother of cirrhosis positive for alcohol Father of cancer No family history of colon cancer Social History Previous EtOH abuse until 2016 Nonsmoker Illicit drug use (Debi Duff) Review of Systems Ears, nose, mouth, throat: COMPLAINS OF: Hoarseness Gastrointestinal: COMPLAINS OF: Nausea, Vomiting (now subsided) (Debi Duff) GI Exam Vitals I&O Vital Signs Date Time Temp Pulse Resp B/P (MAP) Pulse Ox O2 Delivery O2 Flow Rate FiO2 07/07/17 11:38 98.2 81 20 167/85 (112) 97 142/75 (97) 07/07/17 08:25 98.5 80 18 151/93 (112) 99 07/07/17 04:07 97.6 82 17 147/83 (104) 97 07/07/17 00:00 97.8 80 20 155/81 (105) 99 07/06/17 20:00 97.9 79 13 121/65 (83) 96 07/06/17 20:00 79 07/06/17 19:25 95 Nasal Cannula 4.00 07/06/17 19:00 91 Nasal Cannula 4.00 07/06/17 18:00 72 07/06/17 17:00 77 20 135/69 (91) 97 07/06/17 16:00 97.6 86 28 119/66 (83) 96 07/06/17 16:00 86 I/O 07/06/17 07/06/17 07/06/17 07/07/17 07/07/17 07/07/17 07:00 15:00 23:00 07:00 15:00 23:00 Intake Total 200 ml 1537 ml 740 ml 240 ml Output Total 1001 ml 750 ml 400 ml Balance -801 ml 1537 ml -10 ml -160 ml Intake Oral 100 ml 740 ml 240 ml IV Total 100 ml 1537 ml Output Urine Total 1000 ml 750 ml 400 ml Stool Total 1 ml Imaging Last Impressions Chest X-Ray 07/05/17 0600 Signed Impressions: Service Date/Time: June 04:25 - CONCLUSION: No acute disease. Tobias Juarez MD Neck CT 07/03/17 0000 Signed Impressions: Service Date/Time: Monday, July 03, 2017 10:37 - CONCLUSION: Abnormal significant prevertebral soft tissue thickening measuring up to 2.9 cm, greatest in thickness in the subglottic region, but extending up to the hypopharynx. The soft tissue thickening causes narrowing of the hypopharyngeal airway. The This is a new finding when compared to prior MRI in May 2016. Meir Singh MD Chest CT 07/03/17 0000 Signed Impressions: Service Date/Time: Monday, July 03, 2017 10:37 - CONCLUSION: 1. Concentric thickening of the esophageal wall from superior mediastinum to GE junction suggests esophagitis. 2. No evidence of pneumomediastinum. 3. 5 mm nodular density in the lateral right midlung could represent focal thickening of the pleura or a solitary nodule. Recommend followup CT in 6 months. Meir Singh MD Laboratory Test 07/07/17 09:50 White Blood Count 4.5 TH/MM3 Red Blood Count 4.54 MIL/MM3 Hemoglobin 13.3 GM/DL Hematocrit 40.0 % Mean Corpuscular Volume 88.1 FL Mean Corpuscular Hemoglobin 29.2 PG Mean Corpuscular Hemoglobin Concent 33.2 % Red Cell Distribution Width 15.1 % Platelet Count 65 TH/MM3 Mean Platelet Volume 8.5 FL Neutrophils (%) (Auto) 70.6 % Lymphocytes (%) (Auto) 13.5 % Monocytes (%) (Auto) 15.0 % Eosinophils (%) (Auto) 0.8 % Basophils (%) (Auto) 0.1 % Neutrophils # (Auto) 3.2 TH/MM3 Lymphocytes # (Auto) 0.6 TH/MM3 Monocytes # (Auto) 0.7 TH/MM3 Eosinophils # (Auto) 0.0 TH/MM3 Basophils # (Auto) 0.0 TH/MM3 CBC Comment AUTO DIFF Differential Comment AUTO DIFF CONFIRMED Platelet Estimate LOW Platelet Morphology Comment NORMAL Blood Urea Nitrogen 9 MG/DL Creatinine 0.70 MG/DL Random Glucose 101 MG/DL Total Protein 6.3 GM/DL Albumin 2.8 GM/DL Calcium Level 7.9 MG/DL Alkaline Phosphatase 70 U/L Aspartate Amino Transf (AST/SGOT) 183 U/L Alanine Aminotransferase (ALT/SGPT) 99 U/L Total Bilirubin 1.6 MG/DL Sodium Level 140 MEQ/L Potassium Level 2.9 MEQ/L Chloride Level 104 MEQ/L Carbon Dioxide Level 27.9 MEQ/L Anion Gap 8 MEQ/L Estimat Glomerular Filtration Rate 115 ML/MIN Magnesium Level 1.3 MG/DL Date/Time Source Procedure Growth Status 07/03/17 17:37 Blood Peripheral Aerobic Blood Culture - Preliminary NO GROWTH IN 4 DAYS Resulted 07/03/17 17:37 Blood Peripheral Anaerobic Blood Culture - Preliminary NO GROWTH IN 4 DAYS Resulted 07/03/17 16:00 Nasal Washing Influenza Types A,B Antigen (BERNARDO) - Final NEGATIVE FOR FLU A AND B ANTIGEN.... Complete Physical Examination HEENT: Pupils round and reactive to light; normocephalic; atraumatic; no jaundice. Throat hoarseness NECK: Neck is supple, no JVD, no lymphadenopathy. CHEST: Chest is clear to auscultation and percussion. No audible rhonchi CARDIAC: Regular rate and rhythm ABDOMEN: Large, Soft, nondistended, nontender; no hepatosplenomegaly; bowel sounds are present in all four quadrants. EXTREMITIES: No clubbing, cyanosis, or mild lower extremity edema. SKIN: Normal; no rash; no jaundice. 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 (Debi Duff) Assessment and Plan Plan Nausea and vomiting, acute onset admission day now controlled. Patient has been able to take soft foods with no nausea and vomiting today Dysphasia, patient was able to eat yogurt without any problems swallowing but still has a feeling of irritation and hoarseness in his throat History of EGD or colonoscopy. Does have history of extended alcohol use up until November of last year states no further drinking since then. Nonsmoker CT done on admission , neck revealed significant narrowing of the infraglottic airway thickening extending from the left lateral pharyngeal wall bilateral to the level of the base of epiglottis. CT chest showed esophagitis emanating from the mediastinum to the GE junction. Plan EGD in a.m., procedure has been discussed with patient and he agrees with plan Consent on chart And by mouth at midnight tonight on 07/08/17 Pepcid PPI IV Monitor for any further acute nausea vomiting or symptoms of bleeding Monitor labs Bowel regimen with stool softeners, laxatives if needed Supportive care This patient has been seen by myself and , note written on his behalf (Debi Duff) Plan patient was seen and examined, agree with above note, plan EGD in am, monitor HH (Marco La MD) Debi Duff Jul 07, 2017 15:24 Marco La MD Jul 07, 2017 19:01
[2017-07-07] MEDS: predniSONE 20 MG TAB PO SCH (21:13)
[2017-07-08] VITALS (7 sets, daily range): BP systolic 120–137; BP diastolic 67–85; PULSE 81–101; RESP 18; TEMP 97.7–106.6; O2SAT 93–99
[2017-07-08] MEDS: FAMOTIDINE 20 MG/2 ML VIAL IV PUSH SCH ×2 (02:00→14:37)
[2017-07-08] MEDS: DEXT 5%-NACL 0.45% 1000 ML INJ 1,000 ML IV SCH ×3 (03:53→22:07)
[2017-07-08] MEDS: CHLORHEXIDINE GLUCONATE 2 % 1 PACK (2 CLOTHS) TOP SCH (04:00)
[2017-07-08] MEDS: SODIUM CHLORIDE 0.9% FLUSH 10 ML FLUSH IV FLUSH SCH ×2 (08:15→21:00)
[2017-07-08] MEDS: DOCUSATE SODIUM 50 MG/SENNA 8.6 MG TAB PO SCH ×2 (09:00→22:02)
[2017-07-08] MEDS: COLLAGENASE OINT 30 GM TUBE TOPICAL SCH (09:00)
[2017-07-08] MEDS: ENALAPRIL MALEATE 10 MG TAB PO SCH (09:09)
[2017-07-08] MEDS: predniSONE 20 MG TAB PO SCH ×2 (09:09→22:02)
[2017-07-08 09:19] LABS: AUTOMATED NEUTROPHIL # 5.7 TH/MM3 (1.8-7.7); BASOPHIL % 0.1 % (0.0-2.0); EOSINOPHIL # 0.1 TH/MM3 (0-0.4); EOSINOPHIL % 0.7 % (0.0-4.0); HEMOGLOBIN 14.8 GM/DL (13.0-17.0); LYMPH % 10.3 % (9.0-44.0); LYMPHOCYTE # 0.8 TH/MM3 (1.0-4.8); MEAN CELL VOLUME 86.6 FL (80.0-100.0); MEAN CORPUSCULAR HEMOGLOBIN 29.8 PG (27.0-34.0); MEAN CORPUSCULAR HGB CONC 34.4 % (32.0-36.0); MEAN PLATELET VOLUME 8.6 FL (7.0-11.0); MONO % 17.9 % (0.0-8.0); MONOCYTE # 1.4 TH/MM3 (0-0.9); PLATELET COUNT 116 TH/MM3 (150-450); RED BLOOD COUNT 4.97 MIL/MM3 (4.50-5.90); RED CELL DISTRIBUTION WIDTH 15.3 % (11.6-17.2)
[2017-07-08 09:42] LABS: BICARBONATE 26.6 MEQ/L (21.0-32.0); CALCIUM 8.8 MG/DL (8.5-10.1); CREATININE 0.83 MG/DL (0.60-1.30); MAGNESIUM 1.4 MG/DL (1.5-2.5)
[2017-07-08] MEDS ORDERED: SUCCINYLCHOLINE CHLORIDE 200 MG/10 ML VIAL IV ONE (12:00)
[2017-07-08] MEDS ORDERED: LACTATED RINGER'S 1000 ML INJ 1,000 ML IV ONE (12:00)
[2017-07-08] MEDS ORDERED: DEXAMETHASONE SOD PHOS 4 MG/ML VIAL IV ONE (12:00)
[2017-07-08] MEDS ORDERED: PROPOFOL 200 MG/20 ML AMP IV ONE (12:00)
[2017-07-08] MEDS ORDERED: ONDANSETRON HCL 4 MG/2 ML VIAL IV ONE (12:00)
--- NOTE | 2017-07-08 14:26 | HHI.PR ---
Subjective Remarks Follow-up for altered mental status Patient is scheduled for EGD this morning. He denies any nausea or vomiting or abdominal pain. He is AAO 4. Patient does not hear voices or see things that are not there. He stated that he was told he was confused prior. He has no other complaints. Objective Vitals Vital Signs Date Time Temp Pulse Resp B/P (MAP) Pulse Ox O2 Delivery O2 Flow Rate FiO2 07/08/17 08:16 Room Air 07/08/17 08:00 98.2 101 18 125/80 (95) 96 07/08/17 04:00 97.7 81 18 134/82 (99) 95 07/08/17 04:00 106.6 07/08/17 00:00 98.4 96 18 137/85 (102) 95 07/07/17 23:31 Nasal Cannula 4.00 07/07/17 21:30 95 Nasal Cannula 4.00 07/07/17 20:00 99.4 98 18 137/79 (98) 94 07/07/17 16:38 98.3 82 20 182/92 (122) 99 159/76 (103) I/O 07/07/17 07/07/17 07/07/17 07/08/17 07/08/17 07/08/17 07:00 15:00 23:00 07:00 15:00 23:00 Intake Total 240 ml 940 ml 924 ml Output Total 400 ml 940 ml Balance -160 ml 0 ml 924 ml Intake Oral 240 ml 940 ml IV Total 924 ml Output Urine Total 400 ml 940 ml # Voids 3 # Bowel Movements 0 1 Result Diagram: 07/08/1782407/08/17 0825 Objective Remarks GENERAL: in NAD SKIN: Warm and dry. HEAD: Normocephalic. EYES: No scleral icterus. No injection or drainage. NECK: Supple, trachea midline. No JVD or lymphadenopathy. CARDIOVASCULAR: Regular rate and rhythm without murmurs, gallops, or rubs. RESPIRATORY: Breath sounds equal bilaterally. No accessory muscle use. GASTROINTESTINAL: Abdomen soft, non-tender, nondistended. NEURO: AAO X 4. Motor and sensation grossly intact. Medications and IVs Current Medications Sodium Chloride 1,000 ml @ 999 mls/hr BOLUS ONCE IV Last administered on 07/03at 09:45; Start 07/03/17 at 09:30; Stop 07/03/17 at 10:30; Status DC Dexamethasone Sodium Phosphate (Decadron Inj) 10 mg ONCE ONCE IV PUSH Last administered on 07/03/17at 11:57; Start 07/03/17 at 11:30; Stop 07/03/17 at 11:37 ; Status DC Pantoprazole Sodium (Protonix Inj) 40 mg ONCE ONCE IV PUSH Last administered on 07/03/17at 11:57; Start 07/03/17 at 11:30; Stop 07/03/17 at 11:37; Status DC Racepinephrine (Racepinephrine 2.25% Neb) 0.5 ml ONCE ONCE NEB Last administered on 07/03/17at 13:06; Start 07/03/17 at 12:45; Stop 07/03/17 at 12:46 ; Status DC Sodium Chloride 1,000 ml @ 84 mls/hr [id number] IV Last administered on at 01:21; Start 07/03/17 at 14:00; Stop 07/04/17 at 08:10; Status DC Sodium Chloride (NS Flush) 2 ml UNSCH PRN IV FLUSH FLUSH AFTER USING IV ACCESS ; Start 07/03/17 at 13:45; Stop 07/07/17 at 07:20; Status DC Sodium Chloride (NS Flush) 2 ml BID IV FLUSH Last administered on 07/06/17at 20: 22; Start 07/03/17 at 21:00; Stop 07/07/17 at 07:20; Status DC Famotidine (Pepcid Inj) 10 mg Q12H IV PUSH Last administered on 07/08/17at 02:00 ; Start 07/03/17 at 14:00 Ondansetron HCl (Zofran Inj) 4 mg Q6H PRN IV PUSH NAUSEA OR VOMITING; Start at 13:45 Heparin Sodium (Porcine) (Heparin Inj) 5,000 units Q12H SQ Last administered on 07/03/17at 14:00; Start 07/03/17 at 14:00; Status Future Hold Miscellaneous Information 1 Q361D XX Last administered on 07/03/17at 13:45; Start 07/03/17 at 13:45 Chlorhexidine Gluconate (Chlorhexidine 2% Cloth) 3 pack Taper DAILY@04 TOP Last administered on 07/05/17at 03:43; Start 07/04/17 at 04:00; Stop 06/30/18 at 03:59 Chlorhexidine Gluconate (Chlorhexidine 2% Cloth) 3 pack UNSCH PRN TOP HYGIENIC CARE; Start 07/03/17 at 13:45 Senna/Docusate Sodium (Adore-Colace) 1 tab BID PO Last administered on at 21:13; Start 07/03/17 at 21:00 Magnesium Hydroxide (Milk Of Magnesia Liq) 30 ml Q12H PRN PO Mild constipation ; Start 07/03/17 at 13:45 Sennosides (Senokot) 17.2 mg Q12H PRN PO Moderate constipation; Start 07/03/17 at 13:45 Bisacodyl (Dulcolax Supp) 10 mg DAILY PRN RECTAL SEVERE CONSITIPATION; Start at 13:45 Lactulose (Lactulose Liq) 30 ml DAILY PRN PO SEVERE CONSITIPATION; Start at 13:45 Racepinephrine (Racepinephrine 2.25% Neb) 0.5 ml Q3HR NEB PRN NEB STRIDOR Last administered on 07/03/17at 15:08; Start 07/03/17 at 13:45 Dexamethasone Sodium Phosphate (Decadron Inj) 4 mg Q6HR IV PUSH ; Start at 18:00; Stop 07/03/17 at 18:00; Status DC Vancomycin HCl 1000 mg/Sodium Chloride 250 ml @ 250 mls/hr Q12H IV ; Start at 13:45; Stop 07/03/17 at 14:07; Status DC Ceftriaxone Sodium 2000 mg/ Sodium Chloride 100 ml @ 200 mls/hr Q24H IV Last administered on 07/07/17at 14:32; Start 07/03/17 at 14:00 Diphenhydramine HCl (Benadryl Inj) 50 mg ONCE ONCE IM Last administered on at 14:00; Start 07/03/17 at 14:00; Stop 07/03/17 at 14:01; Status DC Diphenhydramine HCl (Benadryl Inj) 25 mg Q6H PRN IM ALLERGIC REACTION; Start at 14:00 Metoprolol Tartrate (Lopressor Inj) 2.5 mg Q6H PRN IV PUSH SBP>160, DBP>90, HR >100 Last administered on 07/06/17at 01:08; Start 07/03/17 at 14:00 Vancomycin HCl 1000 mg/Sodium Chloride 250 ml @ 250 mls/hr ONCE ONCE IV Last administered on 07/03/17at 14:55; Start 07/03/17 at 14:30; Stop 07/03/17 at 15:29 ; Status DC Dexamethasone Sodium Phosphate (Decadron Inj) 6 mg Q6HR IV PUSH Last administered on 07/05/17at 06:02; Start 07/03/17 at 18:00; Stop 07/05/17 at 09:47 ; Status DC Influenza Virus Vaccine (Flu (Quadrivalent) Vaccine Inj) 0.5 ml ONCE ONCE IM ; Start 07/04/17 at 10:00; Stop 07/04/17 at 10:01; Status DC Enalapril Maleate (Vasotec) 10 mg DAILY PO Last administered on 07/08/17at 09:09 ; Start 07/04/17 at 09:00 Dextrose/Sodium Chloride 1,000 ml @ 84 mls/hr [id number] IV Last administered on 07/08/17at 03:53; Start 07/04/17 at 08:15 Potassium Chloride 100 ml @ 50 mls/hr Q2H PRN IV For Potassium 2.8 - 3.2 mEq/L ; Start 07/04/17 at 08:45; Stop 07/07/17 at 07:08; Status DC Potassium Chloride 100 ml @ 50 mls/hr Q2H PRN IV For Potassium 2.8 - 3.2 mEq/ L Last administered on 07/05/17at 22:35; Start 07/04/17 at 08:45; Stop 07/07/17 at 07:06; Status DC Potassium Bicarb/ Potassium Chloride (K-Lyte Cl Eff) 50 meq UNSCH PRN PO For Potassium 3.3 - 3.5 mEq/L; Start 07/04/17 at 08:45; Stop 07/07/17 at 07:06; Status DC Potassium Chloride 100 ml @ 25 mls/hr UNSCH PRN IV For Potassium 3.3 - 3.5 mEq /L; Start 07/04/17 at 08:45; Stop 07/07/17 at 07:06; Status DC Potassium Chloride 100 ml @ 50 mls/hr Q2H PRN IV For Potassium 3.3 - 3.5 mEq/L ; Start 07/04/17 at 08:45; Stop 07/07/17 at 07:06; Status DC Magnesium Sulfate 4 gm/Sodium Chloride 100 ml @ 50 mls/hr UNSCH PRN IV For Magnesium 0.9 - 1.1 mg/dL; Start 07/04/17 at 08:45; Stop 07/07/17 at 07:07; Status DC Magnesium Oxide (Mag-Ox) 800 mg UNSCH PRN PO For Magnesium 1.2 - 1.6 mg/dL; Start 07/04/17 at 08:45; Stop 07/07/17 at 07:06; Status DC Magnesium Sulfate 2 gm/Sodium Chloride 100 ml @ 50 mls/hr UNSCH PRN IV For Magnesium 1.2 - 1.6 mg/dL Last administered on 07/04/17at 23:40; Start 07/04/17 at 08:45; Stop 07/07/17 at 07:06; Status DC Potassium Phosphate (K-Phos) 2,000 mg Q4H PRN PO For Phosphorus < 2.5 mg/dL; Start 07/04/17 at 08:45; Stop 07/07/17 at 07:06; Status DC Sodium Phosphate 30 mmol/Sodium Chloride 250 ml @ 42 mls/hr UNSCH PRN IV For Phosphorus < 2.5 mg/dL; Start 07/04/17 at 08:45; Stop 07/07/17 at 07:06; Status DC Potassium Phosphate (K-Phos) 2,000 mg UNSCH PRN PO/TUBE SEE LABEL COMMENTS; Start 07/04/17 at 08:45; Stop 07/07/17 at 07:06; Status DC Potassium Phosphate 30 mmol/ Sodium Chloride 260 ml @ 42 mls/hr UNSCH PRN IV SEE LABEL COMMENTS Last administered on 07/04/17at 09:51; Start 07/04/17 at 08:45 ; Stop 07/07/17 at 07:06; Status DC Potassium Chloride (KCl Powder) 40 meq ONCE ONCE PO ; Start 07/05/17 at 08:15; Stop 07/05/17 at 08:20; Status DC Haloperidol Lactate (Haldol Inj) 5 mg ONCE ONCE IM Last administered on at 12:24; Start 07/05/17 at 11:30; Stop 07/05/17 at 11:31; Status DC Lorazepam (Ativan Inj) 2 mg ONCE ONCE IV PUSH ; Start 07/05/17 at 10:45; Stop 07/05/17 at 11:18; Status DC Sodium Chloride (NS Flush) 2 ml UNSCH PRN IV FLUSH FLUSH AFTER USING IV ACCESS Last administered on 07/07/17at 00:47; Start 07/05/17 at 11:30 Sodium Chloride (NS Flush) 2 ml BID IV FLUSH Last administered on 07/06/17at 20: 22; Start 07/05/17 at 21:00 Flumazenil (Romazicon Inj) 0.2 mg Q1M PRN IV PUSH SEE LABEL COMMENTS; Start at 11:30 Lorazepam (Ativan) 1 mg Q4H PRN PO CIWA 8 - 10; Start 07/05/17 at 11:30 Lorazepam (Ativan Inj) 1 mg Q4H PRN IV PUSH CIWA 8 - 10; Start 07/05/17 at 11: 30 Lorazepam (Ativan) 2 mg Q2H PRN PO CIWA 11-14; Start 07/05/17 at 11:30 Lorazepam (Ativan Inj) 2 mg Q2H PRN IV PUSH CIWA 11-14 Last administered on at 16:47; Start 07/05/17 at 11:30 Lorazepam (Ativan Inj) 2 mg Q1H PRN IV PUSH CIWA 15-20; Start 07/05/17 at 11:30 Lorazepam (Ativan Inj) 2 mg Q15M PRN IV PUSH CIWA > 20 Last administered on at 02:31; Start 07/05/17 at 11:30 Lorazepam (Ativan Inj) 2 mg ONCE ONCE IM Last administered on 07/05/17at 12:23 ; Start 07/05/17 at 11:30; Stop 07/05/17 at 11:31; Status DC Haloperidol Lactate (Haldol Inj) 2 mg Q15M PRN IM SEE LABEL COMMENTS Last administered on 07/06/17at 04:37; Start 07/05/17 at 20:00 Enalaprilat (Vasotec Inj) 1.25 mg Q6H PRN IV PUSH SBP>160, DBP>90; Start at 10:00 Potassium Chloride 100 ml @ 50 mls/hr Q2H IV Last administered on 07/06/17at 12 :35; Start 07/06/17 at 10:00; Stop 07/06/17 at 13:59; Status DC Collagenase (Santyl Oint) 1 applic DAILY TOPICAL Last administered on at 09:00; Start 07/07/17 at 09:00 Prednisone (Deltasone) 20 mg BID PO Last administered on 07/08/17at 09:09; Start 07/07/17 at 21:00; Stop 07/11/17 at 20:59 Magnesium Oxide (Mag-Ox) 800 mg ONCE ONCE PO Last administered on 07/07/17at 14 :31; Start 07/07/17 at 13:00; Stop 07/07/17 at 13:01; Status DC Potassium Chloride (KCl) 40 meq ONCE ONCE PO Last administered on 07/07/17at 14 :31; Start 07/07/17 at 13:00; Stop 07/07/17 at 13:01; Status DC Potassium Bicarbonate (Effer-K Eff) 50 meq ONCE ONCE PO Last administered on at 14:30; Start 07/07/17 at 15:00; Stop 07/07/17 at 15:01; Status DC A/P Assessment and Plan 61-year-old male admitted secondary to airway compromise due to altered mental status Metabolic encephalopathy -due to delirium tremens. resolved. on CIWA but is back to baseline. ? Dysphasia -Most likely secondary to hospital course from being confused. -Esophageal/pharynx edema. Hoarseness. Cleared by ENT for discharge to follow up as needed as outpatient. -Dr. Naylor ENT doctor recommends antibiotics and taper steroids. Also recommends GI consult. -GI consulted and will perform EGD today. Recommend to continue Pepcid. Airway compromise due to altered mental status. -Resolved Hypertension -Continue baseline treatment -Follow blood pressures -Adjust treatments as needed DVT prophylaxis SCDs Noted vitals in the EMR system 106.6. This was documented incorrectly. Patient is afebrile and is clinically doing better. He is actually back to baseline. Discussed case with patient's nurse. Discharge Planning Discussed case with psychiatrist to reevaluate patient to see if Mayen act can be lifted. Pending EGD today. If patient is cleared by GI, Mayen act is lifted, and able to tolerate or intake possible discharge later today. Kimber Dunn MD Jul 08, 2017 14:26
[2017-07-08] MEDS: MAGNESIUM SULFATE 1 GM PREMIX 100 ML IV SCH ×2 (14:30→15:30)
[2017-07-08] MEDS: cefTRIAXone INJ 2,000 MG in SODIUM CHLORIDE 0.9% INJ 100 ML IV SCH (14:38)
--- NOTE | 2017-07-08 18:53 | PD.PROCEDR ---
GI Procedure PROCEDURE PERFORMED EGD with biopsy INDICATION FOR PROCEDURE Dysphagia PROCEDURE: The procedure, risks and benefits were discussed with Mr. Arnold and informed consent was obtained. Anesthesia sedated him with Diprivan. He was placed in the left lateral decubitus position. EGD: The Pentax videoscope was introduced through the oropharynx and advanced to the second portion of the duodenum under direct visualization. Retroflexion was performed in the stomach. 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, further endoscopy should be done with intubation in the OR Severe grade D esophagitis in the lower middle part of the esophagus, also esophagitis with stricturing in the proximal esophagus most likely this is induced by radiation Dilation was not performed because of the amount of inflammation and the fear of perforation, biopsy from the distal esophagus Mild gastritis Mild to moderate duodenitis Biopsy from the antrum PLAN: No NSAIDs Pured diet Protonix 40 mg twice daily Follow-up biopsy Repeat EGD in 1 month with possible dilation at that time If patient okay tomorrow he can be discharged Marco La MD Jul 08, 2017 18:53
--- NOTE | 2017-07-08 18:54 | HHI.GIFU ---
Subjective Remarks Patient feels okay denies any significant GI problems at this time tolerated soft diet yesterday Objective Vitals I&O Vital Signs Date Time Temp Pulse Resp B/P (MAP) Pulse Ox O2 Delivery O2 Flow Rate FiO2 07/08/17 16:00 99.2 85 18 127/74 (91) 97 07/08/17 12:00 98.2 92 18 120/74 (89) 96 07/08/17 11:00 99 21 07/08/17 08:16 Room Air 07/08/17 08:00 98.2 101 18 125/80 (95) 96 07/08/17 04:00 97.7 81 18 134/82 (99) 95 07/08/17 04:00 106.6 07/08/17 00:00 98.4 96 18 137/85 (102) 95 07/07/17 23:31 Nasal Cannula 4.00 07/07/17 21:30 95 Nasal Cannula 4.00 07/07/17 20:00 99.4 98 18 137/79 (98) 94 I/O 07/07/17 07/07/17 07/07/17 07/08/17 07/08/17 07/08/17 07:00 15:00 23:00 07:00 15:00 23:00 Intake Total 240 ml 940 ml 924 ml 1100 ml Output Total 400 ml 940 ml Balance -160 ml 0 ml 924 ml 1100 ml Intake Oral 240 ml 940 ml IV Total 924 ml 1100 ml Output Urine Total 400 ml 940 ml # Voids 3 # Bowel Movements 0 1 Laboratory Laboratory Tests Test 07/08/17 08:25 White Blood Count 8.0 Red Blood Count 4.97 Hemoglobin 14.8 Hematocrit 43.0 Mean Corpuscular Volume 86.6 Mean Corpuscular Hemoglobin 29.8 Mean Corpuscular Hemoglobin Concent 34.4 Red Cell Distribution Width 15.3 Platelet Count 116 Mean Platelet Volume 8.6 Neutrophils (%) (Auto) 71.0 Lymphocytes (%) (Auto) 10.3 Monocytes (%) (Auto) 17.9 Eosinophils (%) (Auto) 0.7 Basophils (%) (Auto) 0.1 Neutrophils # (Auto) 5.7 Lymphocytes # (Auto) 0.8 Monocytes # (Auto) 1.4 Eosinophils # (Auto) 0.1 Basophils # (Auto) 0.0 CBC Comment DIFF FINAL Differential Comment Blood Urea Nitrogen 10 Creatinine 0.83 Random Glucose 99 Calcium Level 8.8 Magnesium Level 1.4 Sodium Level 139 Potassium Level 3.5 Chloride Level 105 Carbon Dioxide Level 26.6 Anion Gap 7 Estimat Glomerular Filtration Rate 95 Date/Time Source Procedure Growth Status 07/03/17 17:37 Blood Peripheral Aerobic Blood Culture - Final NO GROWTH IN 5 DAYS Complete 07/03/17 17:37 Blood Peripheral Anaerobic Blood Culture - Final NO GROWTH IN 5 DAYS Complete 07/03/17 16:00 Nasal Washing Influenza Types A,B Antigen (BERNARDO) - Final NEGATIVE FOR FLU A AND B ANTIGEN.... Complete Physical Exam HEENT: Pupils round and reactive to light; normocephalic; atraumatic; no jaundice. Throat is clear. NECK: Neck is supple, no JVD, no lymphadenopathy. CHEST: Chest is clear to auscultation and percussion. CARDIAC: Regular rate and rhythm with no murmur gallop or rubs. ABDOMEN: Soft, nondistended, nontender; no hepatosplenomegaly; bowel sounds are present in all four quadrants. EXTREMITIES: No clubbing, cyanosis, or edema. SKIN: Normal; no rash; no jaundice. CARTON STAPLER: No focal deficits; alert and oriented times three. Assessment and Plan Plan patient was seen and examined, no significant complaint at this time, upper endoscopy was done IMPRESSION: Patient is very difficult intubation because of his history of radiation therapy from the cancer that patient had in the neck, further endoscopy should be done with intubation in the OR Severe grade D esophagitis in the lower middle part of the esophagus, also esophagitis with stricturing in the proximal esophagus most likely this is induced by radiation Dilation was not performed because of the amount of inflammation and the fear of perforation, biopsy from the distal esophagus Mild gastritis Mild to moderate duodenitis Biopsy from the antrum PLAN: No NSAIDs Pured diet Protonix 40 mg twice daily Follow-up biopsy Repeat EGD in 1 month with possible dilation at that time If patient okay tomorrow he can be discharged Marco La MD Jul 08, 2017 18:54
[2017-07-08] MEDS ORDERED: DO NOT ADM ANY ANTICOAGULANT DRUGS PRN (19:15)
[2017-07-08] MEDS: PANTOPRAZOLE SOD 40 MG DELAYED RELEASE TAB PO SCH (22:02)
[2017-07-09] VITALS: BP 152/85; PULSE 85; RESP 18; TEMP 97.9; O2SAT 96
[2017-07-09] MEDS: CHLORHEXIDINE GLUCONATE 2 % 1 PACK (2 CLOTHS) TOP SCH (02:50)
[2017-07-09] MEDS: FAMOTIDINE 20 MG/2 ML VIAL IV PUSH SCH (02:50)
[2017-07-09 04:00] VITALS: BP 141/74; PULSE 69; RESP 18; TEMP 97.9; O2SAT 93
[2017-07-09 08:09] VITALS: BP 133/67; PULSE 77; RESP 20; TEMP 98.6; O2SAT 95
[2017-07-09] MEDS: ENALAPRIL MALEATE 10 MG TAB PO SCH (08:42)
[2017-07-09] MEDS: predniSONE 20 MG TAB PO SCH (08:42)
[2017-07-09] MEDS: PANTOPRAZOLE SOD 40 MG DELAYED RELEASE TAB PO SCH (08:42)
[2017-07-09] MEDS: SODIUM CHLORIDE 0.9% FLUSH 10 ML FLUSH IV FLUSH SCH (08:43)
[2017-07-09] MEDS: COLLAGENASE OINT 30 GM TUBE TOPICAL SCH (08:48)
[2017-07-09] MEDS: DEXT 5%-NACL 0.45% 1000 ML INJ 1,000 ML IV SCH (08:49)
[2017-07-09] MEDS: DOCUSATE SODIUM 50 MG/SENNA 8.6 MG TAB PO SCH (09:00)
[2017-07-09 11:33] VITALS: O2SAT 95
[2017-07-09] MEDS ORDERED: PANT40TA3 PO (11:35)
[2017-07-09] MEDS ORDERED: AUGM875T3 PO (11:35)
[2017-07-09] MEDS ORDERED: ENAL10TA PO (11:35)
[2017-07-09] MEDS ORDERED: PRED20 PO (11:35)
--- NOTE | 2017-07-09 11:37 | HHI.DCPOC ---
Discharge Care Plan Diagnosis: (1) Alcohol withdrawal delirium, acute, hyperactive (2) Acute psychosis (3) Airway compromise (4) Esophagitis (5) Esophageal stricture Goals to Promote Your Health * To prevent worsening of your condition and complications * To maintain your health at the optimal level Directions to Meet Your Goals Take your medications as prescribed Follow your dietary instruction Follow activity as directed Keep your appointments as scheduled Take your immunizations and boosters as scheduled If your symptoms worsen call your PCP, if no PCP go to Urgent Care Center or Emergency Room Smoking is Dangerous to Your Health. Avoid second hand smoke Call the 24-hour hour crisis hotline for domestic abuse at Kimber Dunn MD Jul 09, 2017 11:37
--- NOTE | 2017-07-09 11:37 | HHI.DS ---
Discharge Summary Admission Date Jul 03, 2017 at 12:44 Discharge Date: Jul 09, 2017 Admitting Diagnosis Impending airway compromise Procedures See hospital course. Brief History - From Admission HPI This is a 61 year old male , that presented to [facility] ED , complaining of difficulty swallowing that started yesterday after vomiting. He says that whenever he tries to swallow, he chokes and it comes back up his nose. He denies any pain. He denies sore throat, fevers, congestion. The patient was noted to have dysphagia, and hoarseness. The patient's medical history is significant for hypertension the patient has not been compliant with his antihypertensive medication stating he ran out of bed a while ago, 2 weeks, type of medication unknown. Laboratory and imaging studies were performed, CT neck revealed significant narrowing of the infraglottic airway thickening extending from the left lateral pharyngeal wall bilateral to the level of the base of epiglottis. CT chest showed esophagitis emanating from the mediastinum to the GE junction. In the ED the patient received Decadron 10 mg 1 dose, one racemic epi nebulizer treatment. Critical care medicine was consulted. I consulted ENT Dr. Naylor, and discussed case with general surgery Dr. Ramos and Ms. Ang, in the event of possible emergent tracheostomy/or cricothyrotomy. History PFSH Past Medical History Arthritis: No Asthma: No Autoimmune Disease: No Anxiety: No Depression: No Heart Rhythm Problems: No Cancer: Yes (basal cell carcinoma) Cardiovascular Problems: Yes (HBP) High Cholesterol: No Chemotherapy: No Chest Pain: No Congestive Heart Failure: No COPD: No Cerebrovascular Accident: No Diabetes: No Diminished Hearing: No Endocrine: No GERD: No Genitourinary: No Hepatitis: No Hiatal Hernia: No Hypertension: Yes Immune Disorder: No Kidney Stones: Yes Musculoskeletal: No Neurologic: No Psychiatric: No Reproductive: No Respiratory: No Migraines: No Radiation Therapy: No Renal Failure: No Seizures: No Sleep Apnea: No Thyroid Disease: No Ulcer: No Past Surgical History Abdominal Surgery: No AICD: No Arteriovenous Shunt: No Body Medical Devices: 3 SCREWS LEFT HIP Cardiac Surgery: No Ear Surgery: No Endocrine Surgery: No Eye Surgery: No Genitourinary Surgery: Yes (NEPHROSTOMY TUBE KIDNEY STONE LEFT ) Gynecologic Surgery: No Insulin Pump: No Joint Replacement: No Pacemaker: No Thoracic Surgery: No Other Surgery: Yes (LITHOTRIPSY) Social History Alcohol Use: No (QUIT 05/13/10) Tobacco Use: No Substance Use: No Allergies-Medications Allergies-Medications (Allergen,Severity, Reaction): Coded Allergies: *MDRO Multi-Drug Resistant Organism (Verified Adverse Reaction, Unknown, MRSA, 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) MRSA (blood & urine) - 06/30/10 Reported Meds & Prescriptions Reported Meds & Active Scripts Active Amlodipine (Amlodipine Besylate) 10 Mg Tab 10 Mg PO DAILY Hydrocodone-Acetaminophen 5-325 mg Tab 1 Tab PO Q6H PRN Reported Warfarin 10 Mg Tab 10 Mg PO DAILY Enoxaparin Inj (Enoxaparin Sodium) 150 Mg/Ml Syr 150 Mg SQ DAILY Tramadol (Tramadol HCl) 50 Mg Tab 50 Mg PO BID PRN Fish Oil 1,000 mg Softgel (Parrish-3/Dha/Epa/Fish Oil) 1,000 Mg Capsule 1 Cap PO DAILY ROS Review of Systems Except as stated in HPI: all other systems reviewed are Neg General / Constitutional: No: Fever, Chills HENT: No: Headaches, Lightheadedness, Sore Throat Cardiovascular: No: Chest Pain or Discomfort Gastrointestinal: Positive: Vomiting, No: Abdominal Pain Musculoskeletal: No: Myalgias Skin: No Rash, No Change in Pigmentation Neurologic: No: Weakness CBC/BMP: 07/08/17 0825 07/08/17 0825 Significant Findings Laboratory Tests Test 07/07/17 09:50 07/08/17 08:25 Platelet Count 65 TH/MM3 (150-450) 116 TH/MM3 (150-450) Neutrophils (%) (Auto) 70.6 % (16.0-70.0) 71.0 % (16.0-70.0) Monocytes (%) (Auto) 15.0 % (0.0-8.0) 17.9 % (0.0-8.0) Lymphocytes # (Auto) 0.6 TH/MM3 (1.0-4.8) 0.8 TH/MM3 (1.0-4.8) Platelet Estimate LOW (NORMAL) Total Protein 6.3 GM/DL (6.4-8.2) Albumin 2.8 GM/DL (3.4-5.0) Calcium Level 7.9 MG/DL (8.5-10.1) Aspartate Amino Transf (AST/SGOT) 183 U/L (15-37) Alanine Aminotransferase (ALT/SGPT) 99 U/L (12-78) Total Bilirubin 1.6 MG/DL (0.2-1.0) Potassium Level 2.9 MEQ/L (3.5-5.1) Magnesium Level 1.3 MG/DL (1.5-2.5) 1.4 MG/DL (1.5-2.5) Monocytes # (Auto) 1.4 TH/MM3 (0-0.9) Imaging Last Impressions Chest X-Ray 07/05/17 0600 Signed Impressions: Service Date/Time: June 04:25 - CONCLUSION: No acute disease. Tobias Juarez MD Neck CT 07/03/17 0000 Signed Impressions: Service Date/Time: Monday, July 03, 2017 10:37 - CONCLUSION: Abnormal significant prevertebral soft tissue thickening measuring up to 2.9 cm, greatest in thickness in the subglottic region, but extending up to the hypopharynx. The soft tissue thickening causes narrowing of the hypopharyngeal airway. The This is a new finding when compared to prior MRI in May 2016. Meir Singh MD Chest CT 07/03/17 0000 Signed Impressions: Service Date/Time: Monday, July 03, 2017 10:37 - CONCLUSION: 1. Concentric thickening of the esophageal wall from superior mediastinum to GE junction suggests esophagitis. 2. No evidence of pneumomediastinum. 3. 5 mm nodular density in the lateral right midlung could represent focal thickening of the pleura or a solitary nodule. Recommend followup CT in 6 months. Meir Singh MD PE at Discharge GENERAL: in NAD NECK: Supple, trachea midline. No JVD or lymphadenopathy. CARDIOVASCULAR: Regular rate and rhythm without murmurs, gallops, or rubs. RESPIRATORY: Breath sounds equal bilaterally. No accessory muscle use. GASTROINTESTINAL: Abdomen soft, non-tender, nondistended. NEURO: AAO X 4. Motor and sensation grossly intact. Pt update on day of discharge f/u for DT and difficulty swallowing patient has no complaints. He is very anxious to go home. Denies any auditory or visual hallucination. Psychiatrist Dr. Allred I saw the patient went to the [facility]. I spoke with him in person. Hospital Course 61-year-old male admitted secondary to airway compromise due to altered mental status Metabolic encephalopathy -due to delirium tremens. resolved. on CIWA but is back to baseline. ? Dysphasia -Most likely secondary to hospital course from being confused. -Esophageal/pharynx edema. Hoarseness. Cleared by ENT for discharge to follow up as needed as outpatient. -Dr. Naylor ENT doctor recommends antibiotics and taper steroids. Also recommends GI consult. -GI consulted and will perform EGD today. Recommend to continue Pepcid. Airway compromise due to altered mental status. -Resolved Hypertension -Continue baseline treatment -Follow blood pressures -Adjust treatments as needed DVT prophylaxis SCDs Pt Condition on Discharge: Stable Discharge Disposition: Discharge Home Discharge Instructions DIET: Follow Instructions for: As Tolerated, No Restrictions Speech Therapy-Diet Recommends: Pureed Activities you can perform: Regular-No Restrictions Kimber Dunn MD Jul 09, 2017 11:37
--- NOTE | 2017-07-09 12:07 | HHI.PYPN ---
Subjective Remarks The patient was seen today for psychiatric reevaluation. He was accompanied by his daughter. He agreed with his daughter being present in the room. On psychiatric evaluation the patient is calm, cooperative, pleasant. Post good mood, he says that he is happy that he is better and he is able to go back home. Patient is fully oriented 3, no fluctuation of consciousness, no attention deficit present. Patient denies suicidal and homicidal ideation, he denies visual and auditory hallucinations. Today the patient clarifies that he has not drank any alcohol since April 2017, he denies the use of other illegal or legal drugs. He denies psychiatric history Review of Systems Constitutional: DENIES: Diaphoretic episodes, Fatigue, Fever, Weight gain, Weight loss, Chills, Dizziness, Change in appetite, Night Sweats Endocrine: DENIES: Heat/cold intolerance, Polydipsia, Polyuria, Polyphagia Eyes: DENIES: Blurred vision, Diplopia, Eye inflammation, Eye pain, Vision loss , Photosensitivity, Double Vision Ears, nose, mouth, throat: DENIES: Tinnitus, Hearing loss, Vertigo, Nasal discharge, Oral lesions, Throat pain, Hoarseness, Ear Pain, Running Nose, Epistaxis, Sinus Pain, Toothache, Odynophagia Respiratory: DENIES: Apneas, Cough, Snoring, Wheezing, Hemoptysis, Sputum production, Shortness of breath Cardiovascular: DENIES: Chest pain, Palpitations, Syncope, Dyspnea on Exertion , PND, Lower Extremity Edema, Orthopnea, Claudication Gastrointestinal: DENIES: Abdominal pain, Black stools, Bloody stools, Constipation, Diarrhea, Nausea, Vomiting, Difficulty Swallowing, Anorexia Genitourinary: DENIES: Sexual dysfunction, Urinary frequency, Urinary incontinence, Urgency, Hematuria, Dysuria, Nocturia, Penile Discharge, Testicular Pain, Testicular Swelling Musculoskeletal: DENIES: Joint pain, Muscle aches, Stiffness, Joint Swelling, Back pain, Neck pain Integumentary: DENIES: Abnormal pigmentation, Nail changes, Pruritus, Rash Hematologic/lymphatic: DENIES: Bruising, Lymphadenopathy Immunologic/allergic: DENIES: Eczema, Urticaria Neurologic: DENIES: Abnormal gait, Headache, Localized weakness, Paresthesias, Seizures, Speech Problems, Tremor, Poor Balance Mental Status Examination Appearance: Appropriate Consciousness: Alert Orientation: x4 Motor Activity: Normal gait Speech: Unremarkable Language: Adequate Fund of Knowledge: Adequate Attention and Concentration: Adequate Memory: Unremarkable Mood: Appropriate Affect: Appropriate Thought Process & Associations: Intact Thought Content: Appropriate Hallucination Type: None Delusion Type: None Suicidal Ideation: No Suicidal Plan: No Suicidal Intention: No Homicidal Ideation: No Homicidal Plan: No Homicidal Intention: No Insight: Adequate Judgment: Adequate Results Labs Date/Time Source Procedure Growth Status 07/03/17 17:37 Blood Peripheral Aerobic Blood Culture - Final NO GROWTH IN 5 DAYS Complete 07/03/17 17:37 Blood Peripheral Anaerobic Blood Culture - Final NO GROWTH IN 5 DAYS Complete 07/03/17 16:00 Nasal Washing Influenza Types A,B Antigen (BERNARDO) - Final NEGATIVE FOR FLU A AND B ANTIGEN.... Complete Vitals/IOs Vital Signs Date Time Temp Pulse Resp B/P (MAP) Pulse Ox O2 Delivery O2 Flow Rate FiO2 07/09/17 11:33 95 07/09/17 08:45 Room Air 07/09/17 08:09 98.6 77 20 133/67 (89) 07/08/17 19:15 3 07/08/17 11:00 21 Assessment & Plan Problem List: (1) Delirium due to another medical condition ICD Codes: F05 - Delirium due to known physiological condition (2) Alcohol withdrawal delirium, acute, hyperactive ICD Codes: F10.231 - Alcohol dependence with withdrawal delirium (3) Steroid-induced psychosis, with hallucinations ICD Codes: F19.951 - Other psychoactive substance use, unspecified with psychoactive substance-induced psychotic disorder with hallucinations Assessment & Plan: Today the patient doesn't present any neuropsychiatric symptoms that requires an immediate psychiatric intervention. Previous agitation and psychotic behavior most probably was the result of a steroid use. He does not meet criteria for involuntary psychiatric admission at this moment. No psychotropics recommended. Assessment & Plan Estimated LOS: days Justification for Cont. Inpt. No psychiatric admission indicated Marc Turpin MD Jul 09, 2017 12:07
== END 2017-07-09 14:59 | disposition home or self-care (01) | DRG 392 ==
LOC: NEPD 08:31 → NEDA 12:44 → HIMN 14:35 → N05B 07-06 23:47
PROVIDERS: ADMIT Family Medicine; ATTEND Family Medicine
PROC: 0DB78ZX Excision of Stomach, Pylorus, Via Natural or Artificial Opening Endoscopic, Diagnostic (ICD-10-PCS; 2017-07-08)
PROC: 0DB38ZX Excision of Lower Esophagus, Via Natural or Artificial Opening Endoscopic, Diagnostic (ICD-10-PCS; principal; 2017-07-08 18:22)
DX: K22.2 Esophageal obstruction (principal); F10.231 Alcohol dependence with withdrawal delirium; F05 Delirium due to known physiological condition; F23 Brief psychotic disorder; K20.9 Esophagitis, unspecified; K29.70 Gastritis, unspecified, without bleeding; K29.80 Duodenitis without bleeding; I10 Essential (primary) hypertension; R09.02 Hypoxemia; R47.02 Dysphasia; R49.0 Dysphonia; J39.2 Other diseases of pharynx; F24 Shared psychotic disorder; E66.9 Obesity, unspecified; F19.90 Other psychoactive substance use, unspecified, uncomplicated; Z23 Encounter for immunization; Z85.828 Personal history of other malignant neoplasm of skin; Z87.442 Personal history of urinary calculi; Z91.14 Patient's other noncompliance with medication regimen; Z86.718 Personal history of other venous thrombosis and embolism; Z68.31 Body mass index [BMI] 31.0-31.9, adult; Z92.3 Personal history of irradiation
CPT/HCPCS: 70490; 71045; 71250; 76937; 80048; 80053; 83690; 83735; 84100; 84132; 85007; 85025; 85027; 85610; 87040; 87641; 87804; 88305; 88312; 94640; 94664; 96361; 96374; 96375; A7520; A7521; C9113; J0330; J0696; J1100; J1200; J1630; J1644; J2060; J2405; J3010; J3370; J3475; J3480; J7030; J7050; J7120; J7512